=== PATIENT | female | born 1980 ===

== ENCOUNTER 2024-08-24 20:10 | Emergency (ER) | payer OTHER, SELFPAY ==
[2024-08-24 20:14] VITALS: BP 138/84; PULSE 118; RESP 20; TEMP 36.6; O2SAT 98; BMI 38.7
[2024-08-24 21:05] LABS: MANUAL DIFF FLAG NO
[2024-08-24 21:09] LABS: Basophils Absolute Auto 0.1 X10*3/uL (0.0-0.2); Basophils Percent Auto 0.5 % (0-2); Eosinophils Absolute Auto 0.3 X10*3/uL (0.0-0.4); Eosinophils Percent Auto 2.5 % (0-4); Hematocrit 35.4 % (37.0-47.0); Hemoglobin 11.7 g/dl (12.0-16.0); Imm Gran Abs Auto 0.03 X10*3/uL (0.00-0.03); Imm Gran Pct Auto 0.3 % (0.0-0.4); Lymphocytes Absolute Auto 1.2 X10*3/uL (1.2-4.9); Lymphocytes Percent Auto 11.8 % (20-40); Mean Corpuscular HGB Conc 33.1 g/dl (31.0-35.0); Mean Corpuscular Hemoglobin 28.2 pg (27.0-33.0); Mean Corpuscular Volume 85.3 fL (80.0-98.0); Mean Platelet Volume 9.3 fL (9.4-12.3); Monocytes Absolute Auto 0.6 X10*3/uL (0.1-1.2); Monocytes Percent Auto 5.7 % (2-11); Neutrophils Absolute Auto 7.9 x10*3/uL (2.0-8.3); Neutrophils Percent Auto 79.2 % (45-73); Platelet Count 320 X10*3/uL (160-400); Red Blood Count 4.15 X10*6/uL (4.20-5.50)
[2024-08-24 21:18] LABS: IDNOW Serial# 08D9AD1C; Strep A Nucleic Acid Negative (Negative)
[2024-08-24 21:21] LABS: Anion Gap 10 (12-20); Blood Urea Nitrogen 11 mg/dL (9-16); Calcium 8.7 mg/dL (8.4-10.2); Carbon Dioxide 22 mmol/L (22-29); Chloride 108 mmol/L (96-108); Creatinine Clr Calc Pharmacy 90.9; Estimated Glomerular Filt Rate > 60; Glucose Random 120 mg/dL (60-115); Potassium 3.7 mmol/L (3.3-5.1); Sodium 136 mmol/L (135-145)
[2024-08-24 21:45] LABS: Influenza A PCR NEGATIVE (Negative); Influenza B PCR NEGATIVE (Negative); Resp Syncy Virus RNA Qual PCR NEGATIVE (Negative); SARS COV2 PCR INHOUSE POSITIVE (Negative)
--- NOTE | 2024-08-25 04:00 | PC.NURSE ---
Pt in room emc 1 waiting to be seen by ED provider.
[2024-08-25 05:39] VITALS: BP 115/72; PULSE 103; RESP 18; TEMP 37.1; O2SAT 96
--- NOTE | 2024-08-25 07:09 | ED.GENADULT ---
HPI - General Adult General Chief complaint: Upper Respiratory Symptoms Stated complaint: ?Bronchitis Time Seen by Provider: 08/25/24 06:42 Source: patient Mode of arrival: ambulatory Limitations: no limitations History of Present Illness ED Provider: Ginette Griffin PA-C HPI narrative: Patient is a 43 year old assigned female at with no reported medical history presenting to the emergency department today with a month of headache, congestion, and cough. Patient denies any dizziness, lightheadedness, abdominal pain, nausea, vomiting, fever, chills, blurry vision, double vision, loss of vision, chest pain, difficulty breathing, shortness of breath, back pain, night sweats, pain with urination, increased urinary frequency, increased urinary urgency, blood in her urine or stool, syncope or a near syncopal episode, recent trauma or falls, bowel incontinence, bladder incontinence, or any other complaints at this time. Onset (ago): month(s) (1) Relieving factors: none Exacerbating factors: none Associated symptoms: cough Treatments prior to arrival: none Related Data Previous Rx's ?Medication ?Instructions ?Recorded prednisone 20 mg tablet 20 mg PO DAILY 7 days #7 tabs 08/25/24 Allergies Allergy/AdvReac Type Severity Reaction Status Date / Time No Known Allergies Allergy Verified 08/24/24 20:17 Review of Systems Constitutional: Constitutional: Reports no additional constitutional complaints, Denies chills, Denies fever(s) and Denies night sweats Eyes: Eyes: Reports no additional eye complaints, Denies blurry vision, Denies change in vision, Denies diplopia, Denies eye discharge, Denies loss of vision and Denies eye pain ENT: Denies dizziness Cardiovascular: Cardiovascular: Reports no additional cardiovascular complaints, Denies chest pain, Denies lightheadedness, Denies Loss of Consciousness and Denies dyspnea Respiratory: Respiratory: Reports no additional respiratory complaints, Reports cough and Denies dyspnea Gastrointestinal: Gastrointestinal: Reports no additional gastrointestinal complaints, Denies abdominal pain, Denies melena, Denies hematochezia, Denies change in bowel habits and Denies change in stool character Genitourinary: Genitourinary: Denies hematuria, Denies urinary frequency, Denies dysuria, Denies urinary incontinence, Denies urinary hesitancy and Denies urinary urgency Musculoskeletal: Musculoskeletal: Reports no additional musculoskeletal complaints, Denies numbness and Denies tingling Neurologic: Denies dizziness, Denies loss of vision, Denies numbness and Denies tingling Psychiatric: Psychiatric: Reports no additional psychiatric complaints Endocrine: Endocrine: Reports no additional endocrine complaints Hematologic/Lymphatic: Hematologic/Lymphatic: Reports no additional hematologic/lymphatic complaints Allergic/Immunologic: Allergic/Immunologic: Reports no additional allergic/immunologic complaints [facility] Past Medical History Attestation statement: The following information was validated with the patient. Source: old records reviewed and nursing notes reviewed Social History Social History Unable to assess alcohol history related to: Unknown Smoked in Last 30 Days: No Use of substances other than those prescribed or required for medical reasons: No Advance Directives: No Advance Directives Information Provided: No Do you have a plan to hurt others: No Plan Physical Exam ED Vital Signs: Vital Signs - 24 hr 08/24/24 20:14 08/25/24 05:39 08/25/24 07:29 Temperature 97.8 F 98.8 F 98.8 F Pulse Rate 118 H 103 H 103 H Respiratory Rate 20 18 18 Blood Pressure 138/84 115/72 115/72 Pulse Oximetry 98 96 96 Oxygen Delivery Method Room Air Room Air Room Air BMI result Body Mass Index 38.7 Const General: cooperative, no acute distress, alert and awake Nutritional Appearance: well nourished Orientation/consciousness: patient oriented x3 Limitations: no limitations HENMT Head: Yes normal to inspection and Yes atraumatic Ears: hearing grossly normal bilaterally and external ears normal General nose exam: Normal external nose present, no nasal discharge noted and no epistaxis Face and sinus: Yes normal facial exam, No abrasion and No laceration Mouth: Normal oral and palatal mucosa present, no drooling and no muffled voice Eyes General: appearance normal, both eyes and all related structures Periorbital: periorbital findings normal Eyelids: Yes eyelids normal Conjunctivae: conjunctivae normal Pupils: Equal, round and reactive pupils present EOM: EOMs intact bilaterally Neck Neck: Yes normal visual inspection, Yes full ROM and Yes no lymphadenopathy Chest Chest palpation & inspection: normal inspection of the chest Resp Effort & Inspection: normal respiratory effort and able to speak in complete sentences GI Inspection: Yes normal to inspection Neuro General: patient oriented x3 and moves all extremities Cranial nerves: Yes Equal, round and reactive pupils present Cognition (Neuro): normal cognition Extrem General: Yes normal to inspection, Yes full ROM and Yes capillary refill normal Psych Appearance: grossly normal Mental Status: mental status grossly normal Affect: normal affect Attitude: cooperative Thought process: Normal thought process present Thought content: Normal thought content present Insight: Good insight present (Psych) Medical Decision Making Medical Decision Making MDM Narrative: Patient is a 43 year old assigned female at with no reported medical history presenting to the emergency department today with a cough. Patient's physical exam was unremarkable. Patient's blood work was unremarkable. Patient's COVID-19 test was positive. I explained my physical exam findings as well as all test results to the patient. I answered all questions asked by the patient. I stressed the importance of the patient taking her medication as directed (either prescribed or as the over the counter packaging recommends). I stressed the importance of the patient following up with her primary care provider. I stressed the importance of the patient returning to the emergency department immediately if her symptoms were to worsen or if she were to develop any dizziness, shortness of breath, difficulty breathing, chest pain, blurry vision, loss of vision, nausea, vomiting, abdominal pain, fever, chills, back pain, or any other complaints. Patient verbalized agreement and understanding with this treatment plan and discharge. Differential Diagnosis Differential Diagnoses: The differential diagnosis associated with the presentation includes Bronchitis COVID-19 Influenza RSV URI Admission/Observation Consideration of admission/observation: Escalation of care including admission/observation considered Patient would have been admitted to the hospital had her work up had any findings where hospital admission was appropriate and her clinical presentation warranted hospital admission. Lab Data [facility] Lab Attestation statement: I reviewed the patient's lab results. My interpretation of these results are in the MDM Rationale portion of this note. 08/24/24 20:59 08/24/24 20:59 Labs: Lab Results 08/24/24 Range/Units 20:59 WBC 10.0 (4.8-10.8) X10*3/uL RBC 4.15 L (4.20-5.50) X10*6/uL Hgb 11.7 L (12.0-16.0) g/dl Hct 35.4 L (37.0-47.0) % MCV 85.3 (80.0-98.0) fL MCH 28.2 (27.0-33.0) pg MCHC 33.1 (31.0-35.0) g/dl RDW 13.0 (11.0-16.0) % Plt Count 320 (160-400) X10*3/uL MPV 9.3 L (9.4-12.3) fL Immature Gran % (Auto) 0.3 (0.0-0.4) % Neut % (Auto) 79.2 H (45-73) % Lymph % (Auto) 11.8 L (20-40) % [place] % (Auto) 5.7 (2-11) % Eos % (Auto) 2.5 (0-4) % Baso % (Auto) 0.5 (0-2) % Lymph # (Auto) 1.2 (1.2-4.9) X10*3/uL [place] # (Auto) 0.6 (0.1-1.2) X10*3/uL Eos # (Auto) 0.3 (0.0-0.4) X10*3/uL Baso # (Auto) 0.1 (0.0-0.2) X10*3/uL Abs Immat Gran (auto) 0.03 (0.00-0.03) X10*3/uL Absolute Neuts (auto) 7.9 (2.0-8.3) x10*3/uL Absolute Nucleated RBC 0.000 (0.0-0.012) X10*3/uL Nucleated RBC % (auto) 0.0 (0.0-0.2) /100WBC Sodium 136 (135-145) mmol/L Potassium 3.7 (3.3-5.1) mmol/L Chloride 108 (96-108) mmol/L Carbon Dioxide 22 (22-29) mmol/L Anion Gap 10 L (12-20) BUN 11 (9-16) mg/dL Creatinine 0.78 (0.5-1.4) mg/dL Estim Creat Clear Calc 90.9 Estimated GFR > 60 Random Glucose 120 H (60-115) mg/dL Calcium 8.7 (8.4-10.2) mg/dL Influenza Type A (PCR) NEGATIVE (Negative) Influenza Type B (PCR) NEGATIVE (Negative) RSV RNA Qual (PCR) NEGATIVE (Negative) SARS-CoV-2 RNA (RT-PCR) POSITIVE A (Negative) S. pyogenes GrpA MANISHA Negative (Negative) Discharge Plan Discharge Clinical Impression: COVID-19 Patient Disposition: Home, Self-Care Instructions: COVID-19 (Coronavirus Disease 2019) (ED) Additional Instructions: Follow up with your primary care provider. Return to the emergency department immediately if your symptoms worsen or if you develop any dizziness, shortness of breath, difficulty breathing, chest pain, blurry vision, loss of vision, nausea, vomiting, abdominal pain, fever, chills, back pain, or any other complaints. Prescriptions: New prednisone 20 mg tablet 20 mg PO DAILY 7 Days Qty: 7 0RF Referrals: [facility] Family Medicine [Provider Group] (Call to establish and follow up with a primary care provider. If you already have a primary care provider, please follow up with them. ) [facility] Primary Care, C[place]lle [Provider Group] (Call to establish and follow up with a primary care provider. If you already have a primary care provider, please follow up with them. ) [facility] Primary Care,Evaristo [Provider Group] (Call to establish and follow up with a primary care provider. If you already have a primary care provider, please follow up with them. ) Stand Alone Forms: Work/School Release Interventions: ED Discharge Assessment Last Done: 08/25/24 07:29 Discharge Date/Time: 08/25/24 07:29 Print Language: Persian
[2024-08-25 07:29] VITALS: BP 115/72; PULSE 103; RESP 18; TEMP 37.1; O2SAT 96
== END 2024-08-25 07:29 | disposition home or self-care (01) ==
PROVIDERS: Emergency Provider Student in an Organized Health Care Education/Training Program
DX: U07.1 COVID-19 (principal); R05.9 Cough, unspecified; R51.9 Headache, unspecified; R09.89 Other specified symptoms and signs involving the circulatory and respiratory systems
CPT/HCPCS: 0241U; 36415; 80048; 85025; 87651; 99283; 99284

== ENCOUNTER 2024-11-30 11:07 | Outpatient (REF) | payer OTHER, SELFPAY ==
--- OUTSIDE RECORDS SUMMARY | 2024-11-30 12:19 | XMS_ITS | Encounter Summary ---
Author Organization [employer] Address [address] [place] [address] 7 [place] [address] Care Team Providers Care Golf Player Assistant Name Role Phone Oziel Sandra MD Primary Care Prov ider Encounter Details Date Type Department Care Team ([facility] st Contact Info) Description 11/30/2024 Telephone [facility] MED & PEDS [address] [place], [place] [phone] Oziel Sandra MD [address] [place] [address] Social History Tobacco Use Types Packs/Day Years Used Date Smoking Tobacco: Never Smokeless Tobacco: Never Alcohol Use Standard Drinks/Week Comments Yes 0 (1 standard drink = 0.6 oz pur e alcohol) social hard liquor Depression Answer Date Recorded Patient Health Questionnaire-9 Score 4 11/23/2024 Patient Health Questionnaire-9 Score 4 11/23/2024 Last PHQ-9: Questionnaire Data Not on file 0 11/23/2024 Housing Stability Answer Date Recorded What is your housing situation today? I have ben burdick 11/23/[address] you li ve. Do you have problems with any of the following? None of the above 11/23/2024 Food Insecurity Answer Date Recorded Within the past 12 months, y ou worried that your food would run out before you got money to buy more: Never True 11/23/2024 Within the past 12 months,th e food you bought just didn't last and you didn't have enough money to get more: Never True 08/2025 Transportation Answer Date Recorded In the past 12 months, has l ack of transportation kept you from medical appts, meetings, work or from getting things needed for daily living? No 11/23/2024 Utilities Answer Date Recorded In the past 12 months, has t he electric, gas, oil or water company threatened to shut off services in your home? No 11/23/2024 Depression Answer Date Recorded Patient Health Questionnaire-2 Score 2 11/23/2024 Internet Access Answer Date Recorded Internet Access Q1 Yes 11/23/2024 Internet Access Q2 Not on file 11/23/2024 Comments Unknown Sex and Gender Information Value Date Recorded Sex Assigned at Female 10/11/2024 8:53 AM EST Legal Sex Female 8:52 AM EST Gender Identity Female 11/23/2024 1:03 PM EST Sexual Orientation Straight 11/23/2024 1: 03 PM EST documented as of this encounter Miscellaneous Notes * Telephone Encounter - Kathleen Hu MA - 11/30/2024 9:42 AM EST Called pt to schedule pap appt with Griselda Quinonez CNM. Pt. Prefers female provider for pap. Pt didn't answer, lvm to call office back. documented in this encounter Plan of Treatment Upcoming Encounters Date Type Department Care Team (Late st Contact Info) Description 01/04/2025 9:30 AM EDT Telemedicine [facility] MED & PEDS [address] [place] [address] Oziel Sandra MD [address] [place] [address] 02/10/2025 9:00 AM EDT Procedure Visit [facility] MED & PEDS [address] [place] [address] Griselda Quinonez CNM [address] [place] [address] documented as of this encounter Visit Diagnoses Not on filedocumented in this encounter Additional Health Concerns Assessment Noted Time PHQ-9 Depression Total Score: 4 11/23/19 25 1:28 PM EST documented as of this encounter Care Teams Golf Player Assistant Relationship Specialty Start Date End Date Oziel Sandra MD [address] [place] [id number] PCP - General Internal Medicine 11/23/24 documented as of this encounter
--- OUTSIDE RECORDS SUMMARY | 2024-11-30 12:19 | XMS_ITS | Encounter Summary ---
Author Organization [employer] Address [address] [facility] [address] [place] [address] Care Team Providers Care Work Study Student Name Role Phone Oziel Sandra MD Primary Care Prov ider Encounter Details Date Type Department Care Team (Latest Contact Info) Description 11/30/2024 Travel Social History Tobacco Use Types Packs/Day Years [...] PM EST documented as of this encounter Plan of Treatment Upcoming Encounters Date Type Department Care Team (Late st Contact Info) Description 01/04/2025 9:30 AM EDT Telemedicine [facility] MED & PEDS [address] [place] [address] Oziel Sandra MD [address] [place] [address] 02/10/2025 9:00 AM EDT Procedure Visit [facility] MED & PEDS [address] [place] [address] Griselda Quinonez, CNM [address] [place] [address] documented as of this encounter Visit Diagnoses Not on filedocumented in this encounter Additional Health Concerns Assessment Noted Time PHQ-9 Depression Total Score: 4 11/23/19 1:28 PM EST documented as of this encounter Care Teams Work Study Student Relationship Specialty Start Date End Date Oziel Sandra MD [address] [place] [address] PCP - General Internal Medicine 11/23/24 documented as of this encounter
--- OUTSIDE RECORDS SUMMARY | 2024-11-30 12:19 | XMS_ITS | Clinical Summary ---
Author Organization [employer] Address [address] [place] [address] [address] [place] [address] Care Team Providers Care Ream Cutter Name Role Phone Oziel Sandra MD Primary Care Prov ider Allergies No known active allergies Medications Omeprazole 20 MG tablet delayed-release Take 1 tablet (20 mg) by mouth Once per day. 90 tablet 3 5 11/23/19 26 Active fluticasone (Flonase) 50 MCG/ACT nasal spray Administer 1-2 sprays into each nostril Once per day. Shake gently. Before first use, prime pump. After use, clean tip and replace cap. 16 g 2 5 11/23/19 26 Active cetirizine (ZyrTEC) 10 MG tablet Take 1 tablet (10 mg) by mouth Once per day. 30 tablet 11 5 11/23/19 26 Active Active Problems Problem Noted Date Diagnosed Date Encounter for medical examination to establish c are 11/23/2024 Assessment & Plan (11/23/2024 1:42 PM EST): Last pcp visit over 3 years ER: bronchitis jul 2024 Hospitalization:- Pmhx: - Pshx: - All: - Meds: - [id number] LMP 11/23/24 Menarche 8yrs Sexually active with 1 male partner, Screening for colon cancer 11/23/2024 Assessment & Plan (11/23/2024 1:46 PM EST): Will refer for screening colon cancer Encounter for screening mamm ogram for malignant neoplasm of breast 11/23/2024 Assessment & Plan (11/23/2024 1:47 PM EST): Screening mammogram Acute pain of left knee 11/23/2024 Assessment & Plan (11/23/2024 2:03 PM EST): Will order left knee xray, told to rest, apply cold packs, avoid heavy lifting, will refer to PT Chronic rhinitis 11/23/2024 Assessment & Plan (11/23/2024 2:05 PM EST): Will start on Flonase and cetirizine, call back if not improving, Gastroesophageal reflux disease without esophagi tis 11/23/2024 Assessment & Plan (11/23/2024 2:09 PM EST): Will start on omeprazole, lifestyle modifications discussed, follow up as needed Encounters Date Type Department Care Team Description 11/30/2024 Travel 11/30/2024 Telephone [facility] MED & PEDS [address] [place] [address] Oziel Sandra MD 11/23/2024 1:45 PM EST Office Visit [facility] [address] [place] [address] Oziel Sandra MD Encounter for medical examination to establish care (Primary Dx); Obesity (BMI 30-39.9); Screening for colon cancer; Encounter for screening mammogram for malignant neoplasm of breast; Acute pain of left knee; Screening-pulmonary TB; Chronic rhinitis; Encounter for immunization; Gastroesophageal reflux disease without esophagitis 11/23/2024 Travel 11/16/2024 Patient Outreach [facility] [address] [place] [address] Oziel Sandra MD Pre-visit Planning ([facility] unable to reach [facility]) 10/11/2024 Telephone [facility] [address] [place] [address] He Ambriz MD new patient visit from Last 3 Months Immunizations Name Administration Dates Next Due Tdap 11/23/2024 Family History Medical History Relation Name Comments Colon cancer Brother Colon cancer Father Diabetes Father Osteoarthritis Father No Known Problems Mother Relation Name Status Comments Brother Father Mother Social History Tobacco Use Types Packs/Day Years Used Date Smoking Tobacco: Never Smokeless Tobacco: Never Tobacco Cessation:Counseling Given: Not Answered Alcohol Use Standard Drinks/Week Comments Yes 0 [...] Orientation Straight 11/23/2024 1: 03 PM EST Last Filed Vital Signs Vital Sign Reading Time Taken Comments Blood Pressure 132/88 11/23/2024 1:25 PM EST Pulse 88 11/23/2024 1:25 PM EST Temperature 36.7 ??C (98.1 ??F) 11/23/2024 1:25 PM ES T Respiratory Rate 20 11/23/2024 1:25 PM EST Oxygen Saturation - - Inhaled Oxygen Concentration - - Weight 88.5 kg (195 lb 3.2 oz) 11/23/2024 1:25 P M EST Height 152.4 cm (5') 11/23/2024 1:25 PM EST Body Mass Index 38.12 11/23/2024 1:25 PM EST Plan of Treatment Upcoming Encounters Date Type Department Care Team (Late st Contact Info) Description 01/04/2025 9:30 AM EDT Telemedicine [facility] MED [facility] PED[facility] [address] [place] [address] Oziel Sandra MD [address] [place] [address] 02/10/2025 9:00 AM EDT Procedure Visit [facility] [address] [place] [address] Griselda Quinonez, KARLEE [address] [place] [address] Health Maintenance Due Date Last Done Comments CT Colonography 1978 Colonoscopy 1978 Colorectal Cancer Screening 1978 FIT DNA/Cologuard 1978 FIT 1978 FOBT 1978 HIV Screening 1978 Lipid Panel 1978 Sigmoidoscopy 1978 Family Planning (PISQ) 1993 Hepatitis C Screening 1996 Pap Smear 1999 Cervical Cancer Screening 2008 HPV/Cotest 2008 Hepatitis B Vaccines (2 of 3 - 19+ 3-dose series) 09/15/2017 08/18/2017 Mammogram 2018 COVID-19 Vaccine (2023-2 5 season) 2024 02/26/2021, 02/05/2021 Influenza Vaccine (#1) 2024 06/22/2019 Alcohol/Substance Use Screening 11/23/2025 11/23/2024 Depression Screening 11/23/2025 11/23/2024, 11/23/2024 SDOH Screening 11/23/2025 11/23/2024 Tobacco Screening 11/23/2025 11/23/2024 Zoster Vaccines (1 of 2) 2028 DTaP/Tdap/Td Vaccines (3 - T d or Tdap) 11/23/2034 11/23/2024, 10/17/2009 RSV Patients and Patients Aged 60 years or older (1 - 1-dose 75+ series) 2053 HIB Vaccines Aged Out No longer eligi ble based on patient's age to complete this topic HPV Vaccines Aged Out No longer eligi ble based on patient's age to complete this topic Hepatitis A Vaccines Aged Out No long er eligible based on patient's age to complete this topic IPV Vaccines Aged Out No longer eligi ble based on patient's age to complete this topic Meningococcal Vaccine Aged Out No barrett leila eligible based on patient's age to complete this topic Pneumococcal Vaccine: Pediatrics (0 to 5 Years) and At-Risk Patients (6 to 49) Years) Aged Out No longer eligible b ased on patient's age to complete this topic RSV under 20 months Aged Out No longe r eligible based on patient's age to complete this topic Rotavirus Vaccines Aged Out No longer eligible based on patient's age to complete this topic Insurance [employer] Care Teams Ream Cutter Relationship Specialty Start Date End Date Oziel Sandra MD [address] [place] [id number] PCP - General Internal Medicine 11/23/24
--- OUTSIDE RECORDS SUMMARY | 2024-11-30 12:19 | XMS_ITS | Clinical Summary ---
Author Organization [facility] Address [address] [place] [address] Care Team Providers Care Heat And Vent Aircraft Mechanic Name Role Phone Pcp, Porsche MD Primary Care Provider Unavailabl e Allergies No known active allergies Medications No known medications Active Problems No known active problems Social History Tobacco Use Types Packs/Day Years Used Date Smoking Tobacco: Never Assessed Comments No Sex and Gender Information Value Date Recorded Sex Assigned at Not on file Legal Sex Female 1:45 PM EDT Gender Identity Not on file Sexual Orientation Not on file Last Filed Vital Signs Vital Sign Reading Time Taken Comments Blood Pressure 124/60 04/13/2024 3:58 PM EDT Pulse 76 04/13/2024 3:58 PM EDT Temperature 36.8 ??C (98.2 ??F) 04/13/2024 3:58 PM ED T Respiratory Rate 18 04/13/2024 3:58 PM EDT Oxygen Saturation 96% 04/13/2024 3:58 PM EDT Inhaled Oxygen Concentration - - Weight 89.8 kg (198 lb) 04/13/2024 2:07 PM EDT Height 152.4 cm (5') 04/13/2024 2:07 PM EDT Body Mass Index 38.67 04/13/2024 2:07 PM EDT Plan of Treatment Health Maintenance Due Date Last Done Comments Breast Cancer Screening 1978 CT Colonography 1978 Colonoscopy 1978 Colorectal Cancer Screening 1978 FIT-DNA (Cologuard) 1978 FIT 1978 FOBT 1978 Flex Sigmoidoscopy - 5y 1978 HIV Screening 1978 Hepatitis C Screening 1996 Hepatitis B Vaccines (1 of 3 - 19+ 3-dose series) 1997 Pap Smear 1999 Cervical Cancer Screening 2008 HPV/Cotest 2008 DTaP,Tdap,and Td Vaccines (2 - Td or Tdap) 10/17/2019 10/17/2009 COVID-19 Vaccine (1 - 2023-2 5 season) 2024 Influenza Vaccine (#1) 2024 06/22/2019 Zoster Vaccines (1 of 2) 2028 MMR Vaccines Aged Out 06/24/2019 No longer eligi ble based on patient's age to complete this topic HPV Vaccines Aged Out No longer eligi ble based on patient's age to complete this topic Hepatitis A Vaccines Aged Out No long er eligible based on patient's age to complete this topic Meningococcal Vaccine Aged Out No barrett leila eligible based on patient's age to complete this topic Pneumococcal Vaccine: Pediat rics (0 to 5 Years) and At-Risk Patients (6 to 64 Years) Aged Out No longer eligi ble based on patient's age to complete this topic Insurance Krysta fitzpatrick [address] [id number] [facility] Care Teams Heat And Vent Aircraft Mechanic Relationship Specialty Start Date End Date Porsche Matta MD [address] [place] [address] PCP - General Internal Medicine 04/13/24
--- OUTSIDE RECORDS SUMMARY | 2024-11-30 12:19 | XMS_ITS ---
Author Name [facility] Organization Unknown Results Test Name/Text Value Interpretation Date Range Source INFLUENZA B PCR (CEPHEID) Not Detected Normal [facility] INFLUENZA A PCR (CEPHEID) Not Detected Normal [facility] RSV PCR (CEPHEID) Not Detected Normal [facility] SARS-COV-2 PCR (CEPHEID) Negative Normal [facility] CREATININE 0.8mg/dL Normal 0.6 - 1.2 [facility] POTASSIUM 4.8mmol/L Normal 3.6 - 5.1 [facility] BICARBONATE 23mmol/L Normal 23 - 32 [facility] GLOMERULAR FILTRATION RATE ML/MIN/1.73 SQ M.PREDICTED 93mL/min/1.73m*2 Normal 60 - [facility] SODIUM 139mmol/L Normal 137 - 144 [facility] CHLORIDE 109mmol/L Normal 100 - 111 [facility] CALCIUM, TOTAL 8.9mg/dL Normal 8.4 - 10.2 [facility] UREA NITROGEN 10mg/dL Normal 8 - 24 [facility] ANION GAP 7mmol/L Normal 3 - 11 [facility] GLUCOSE 92mg/dL Normal 70 - 200 [facility] RBC DISTRIBUTION WIDTH 12.8% Normal 11.6 - 14.8 [facility] AUTO NRBC % 0% Normal 0 - [address] [facility] [address] 5.910*3/uL Normal 1.4 - 6.[address] [facility] [address] 0.510*3/uL Normal [id number] 0.2 - 0.8 [facility] MCHC 32.9g/dL Normal 32 - 36 [facility] MCH 28.3pg Normal [id number] 26 - 34 [facility] IMMATURE GRANULOCYTE % 0.2% Normal 0 - 0.6 [facility] EOSINOPHIL % 2.1% Normal 0 - [address] [facility] [address] 010*3/uL Normal 0 - 0. 2 [facility] MCV 86.2fL Normal 80 - 100 [facility] PLATELET COUNT 45134*3/uL Normal 150 - 440 [facility] BASOPHILS % 0.5% Normal 0 - [address] [facility] [address] 1.910*3/uL Normal 0.7 - 4.[address] [facility] [address] 0.210*3/uL Normal 0 - 0.3 [facility] HEMATOCRIT 36.2% Normal 35 - 47 [facility] WHITE CELL COUNT 8.510*3/uL Normal 3.6 - 11 [facility] RED CELL COUNT 4.210*6/???L Normal 3.8 - 5.2 [facility] MONOCYTE % 6% Normal 4 - 12 [facility] NEUTROPHIL % 69% Normal 40 - 70 [facility] HEMOGLOBIN 11.9g/dL Below low normal 12 - 16 [facility] LYMPHOCYTE % 22.2% Normal 20 - 50 [facility]
--- OUTSIDE RECORDS SUMMARY | 2024-11-30 12:19 | XMS_ITS | Encounter Summary ---
Author Organization [employer] Address [address] [place] [address] [address] [place] [address] Care Team Providers Care Bond Writer Name Role Phone Oziel Sandra MD Primary Care Prov ider Reason for Referral * Consultation (Routine) - Closed Specialty Diagnoses / Procedures Referred By Yuliya acno Referred To Contact Physical Therapy Diagnoses Acute pain of left knee Oziel Sandra MD [address] [place] [address] Phone: tel: fax: Physical Therapy, AT [address] Phone: tel: fax: Referral ID Status Reason Start Date Expiration Date V isits Requested Visits Authorized [id number] Closed Specialty Services Required 11/23/2024 11/23/2025 1 1 * Imaging (Routine) - Closed Specialty Diagnoses / Procedures Referred By Yuliya cano Referred To Contact Radiology Diagnoses Encounter for screening mammogram for malignant neoplasm of breast Procedures BI Mammogram Screening Tomosynthesis Bilateral Oziel Sandra MD [address] [place] [address] Phone: tel: fax: [address] Phone: tel: fax: Referral ID Status Reason Start Date Expiration Date Visits Re quested Visits Authorized [id number] Closed 11/23/2024 11/23/2025 1 1 * Consultation (Routine) - Authorized Specialty Diagnoses / Procedures Referred By Yuliya cano Referred To Contact Gastroenterology Diagnoses Screening for colon cancer Oziel Sandra MD [address] [place] [address] Phone: tel: fax: Cyndie Reid MD [address] [place] [address] [place] [address] Phone: tel: fax: Referral ID Status Reason Start Date Expiration Date Visits Requested Visits Authorized [id number] Authorized Specialty Services Required 11/23/2024 11/23/2025 1 1 Encounter Details Date Type Department Care Team ([facility] st Contact Info) Description 11/23/2024 1:45 PM EST Office Visit [facility] [address] [place] [address] Oziel Sandra MD [address] [place] [address] Encounter for medical examination to establish care (Primary Dx); Obesity (BMI 30-39.9); Screening for colon cancer; Encounter for screening mammogram for malignant neoplasm of breast; Acute pain of left knee; Screening-pulmonary TB; Chronic rhinitis; Encounter for immunization; Gastroesophageal reflux disease without esophagitis Social History Tobacco Use Types Packs/Day Years [...] PM EST documented as of this encounter Last Filed Vital Signs Vital Sign Reading [...] Mass Index 38.12 11/23/2024 1:25 PM EST documented in this encounter Progress Notes * Oziel Wing MD - 11/23/2024 1:45 PM EST Subjective Patient ID: Araceli Wright is a 44 y.o. female who presents for No chief complaint on file.. HPI Patient was seen on office to establish medical care Review of Systems Constitutional: Negative for chills, fatigue and fever. Respiratory: Negative for cough and shortness of breath. Cardiovascular: Negative for chest pain and palpitations. Genitourinary: Negative for dysuria. Musculoskeletal: Negative for arthralgias and joint swelling. Objective Physical Exam Constitutional: Appearance: Normal appearance. HENT: Right Ear: Tympanic membrane, ear canal and external ear normal. There is no impacted cerumen. Left Ear: Tympanic membrane, ear canal and external ear normal. There is no impacted cerumen. Cardiovascular: Rate and Rhythm: Normal rate and regular rhythm. Heart sounds: No murmur heard. Pulmonary: Effort: Pulmonary effort is normal. No respiratory distress. Breath sounds: No stridor. No wheezing or rhonchi. Abdominal: General: Abdomen is flat. There is no distension. Palpations: There is no mass. Tenderness: There is no abdominal tenderness. Hernia: No hernia is present. Musculoskeletal: General: Normal range of motion. Cervical back: Normal range of motion. No rigidity or tenderness. Lymphadenopathy: Cervical: No cervical adenopathy. Neurological: General: No focal deficit present. Mental Status: She is alert and oriented to person, place, and time. Psychiatric: Mood and Affect: Mood normal. Behavior: Behavior normal. Assessment/Plan Problem List Items Addressed This Visit Encounter for medical examination to establish care - Primary Last pcp visit over 3 years ER: bronchitis jul 2024 Hospitalization:- Pmhx: - Pshx: - All: - Meds: - G5A4P1 LMP 11/23/24 Menarche 8yrs Sexually active with 1 male partner, Screening for colon cancer Will refer for screening colon cancer Relevant Orders Referral to Gastroenterology Encounter for screening mammogram for malignant neoplasm of breast Screening mammogram Relevant Orders BI Mammogram Screening Tomosynthesis Bilateral Acute pain of left knee Will order left knee xray, told to rest, apply cold packs, avoid heavy lifting, will refer to PT Relevant Orders XR Knee 4+ Views Left Referral to Physical Therapy Chronic rhinitis Will start on Flonase and cetirizine, call back if not improving, Gastroesophageal reflux disease without esophagitis Will start on omeprazole, lifestyle modifications discussed, follow up as needed Other Visit Diagnoses Obesity (BMI 30-39.9) Relevant Orders CBC auto differential Comprehensive Metabolic Panel Lipid Panel, Standard TSH W/Reflex to FT4 Hemoglobin A1c HIV-1/2 Antigen and Antibodies, Fourth Generation, with Reflexes Hepatitis C Antibody with Reflex to HCV, RNA, Quantitative, Real-Time PCR Screening-pulmonary TB Relevant Orders T-SPOT??.TB Encounter for immunization Relevant Orders TDAP VACCINE 7 yrs + (Completed) documented in this encounter Miscellaneous Notes * Assessment & Plan Note - Oziel Wing MD - 11/23/2024 2:09 PM ESTAssociated Problem(s): Gastroesophageal reflux disease without esophagitis Will start on omeprazole, lifestyle modifications discussed, follow up as needed * Assessment & Plan Note - Oziel Wing MD - 11/23/2024 2:05 PM ESTAssociated Problem(s): Chronic rhinitis Will start on Flonase and cetirizine, call back if not improving, * Assessment & Plan Note - Oziel Wing MD - 11/23/2024 2:03 PM ESTAssociated Problem(s): Acute pain of left knee Will order left knee xray, told to rest, apply cold packs, avoid heavy lifting, will refer to PT * Assessment & Plan Note - Oziel Wing MD - 11/23/2024 1:47 PM ESTAssociated Problem(s): Encounter for screening mammogram for malignant neoplasm of breast Screening mammogram * Assessment & Plan Note - Oziel Wing MD - 11/23/2024 1:46 PM ESTAssociated Problem(s): Screening for colon cancer Will refer for screening colon cancer * Assessment & Plan Note - Oziel Wing MD - 11/23/2024 1:42 PM ESTAssociated Problem(s): Encounter for medical examination to establish care Last pcp visit over 3 years ER: bronchitis jul 2024 Hospitalization:- Pmhx: - Pshx: - All: - Meds: - G5A4P1 LMP 11/23/24 Menarche 8yrs Sexually active with 1 male partner, documented in this encounter Plan of Treatment Upcoming Encounters Date Type Department Care Team (Late st Contact Info) Description 01/04/2025 9:30 AM EDT Telemedicine [facility] [address] [place] [address] Oziel Sandra MD [address] [place] [address] 02/10/2025 9:00 AM EDT Procedure Visit [facility] [address] [place] [address] Griselda Quinonez, CN [address] [place] [address] Scheduled Orders Name Type Priority Associated Diagnoses Orde r Schedule CBC auto differential Lab Routine Obesity (BMI 30-39.9) Expected: 11/23/2024 (Approximate), Expires: 11/23/2025 Comprehensive Metabolic Panel Lab Routine Obesity (BMI 30-39.9) Expected: 11/23/2024 (Approximate), Expires: 11/23/2025 Lipid Panel, Standard Lab Routine Obesity (BMI 30-39.9) Expected: 11/23/2024 (Approximate), Expires: 11/23/2025 TSH W/Reflex to FT4 Lab Routine Obesity (BMI 30-39.9) Expected: 11/23/2024 (Approximate), Expires: 11/23/2025 Hemoglobin A1c Lab Routine Obesity (BMI 30-39.9) Expected: 11/23/2024 (Approximate), Expires: 11/23/2025 HIV-1/2 Antigen and Antibodies, Fourth Generation, with Reflexes Lab Routine Obesity (BMI 30-39.9) Expected: 11/23/2024 (Approximate), Expires: 11/23/2025 Hepatitis C Antibody with Reflex to HCV, RNA, Quantitative, Real-Time PCR Lab Routine Obesity (BMI 30-39.9) Expected: 11/23/2024, Expires: 11/23/2025 BI Mammogram Screening Tomosynthesis Bilateral Imaging Routine Encounter for screening mammogram for malignant neoplasm of breast Expected: 11/23/2024, Expires: 01/21/2026 XR Knee 4+ Views Left Imaging Routine Acute pain of left knee Expected: 11/23/2024, Expires: 11/23/2025 T-SPOT??.TB Lab Routine Screening-pulmonary TB Expected: 11/23/2024 (Approximate), Expires: 11/23/2025 Scheduled Referrals Name Type Priority Associated Diagnoses Order Schedule Referral to Gastroenterology Outpatient Referral Routine Screening for colon cancer Expected: 11/23/2024 (Approximate), Expires: 11/23/2025 Referral to Physical Therapy Outpatient Referral Routine Acute pain of left knee Expected: 11/23/2024 (Approximate), Expires: 11/23/2025 documented as of this encounter Visit Diagnoses Diagnosis Encounter for medical examination to establish care- Primary Obesity (BMI 30-39.9) Screening for colon cancer Special screening for malignant neoplasms, colon Encounter for screening mammogram for malignant neoplasm of breast Acute pain of left knee Screening-pulmonary TB Screening examination for pulmonary tuberculosis Chronic rhinitis Encounter for immunization Gastroesophageal reflux disease without esophagitis Esophageal reflux documented in this encounter Additional Health Concerns Assessment Noted Time PHQ-9 Depression Total Score: 4 11/23/19 25 1:28 PM EST documented as of this encounter Care Teams Bond Writer Relationship Specialty Start Date End Date Oziel Sandra MD [address] [place] [address] PCP - General Internal Medicine 11/23/24 documented as of this encounter
--- OUTSIDE RECORDS SUMMARY | 2024-11-30 12:19 | XMS_ITS | Clinical Summary ---
Author Organization [facility] Address [address] [place] [address] Care Team Providers Care Director Acute Name Role Phone Dora Westbrook MD Primary Care Provider [phone] Surgical History Surgery Date Site/Laterality Comments OTHER SURGICAL HISTORY PROCEDURE: DENIES PREVIOUS SURGERY Medical History Medical History Date Comments Human papillomavirus in cond itions classified elsewhere and of unspecified site DX:Human papillomavirus in c onditions classified elsewhere and of unspecified site; COMMENT: Pap normal 08/20 with + HPV recheck normal 2008 Shingles outbreak DX:Shingles ou tbreak Herpes 2015 DX:Herpes; COMME NT: Type 2 positive Family History Medical History Relation Name Comments Hypertension Brother CTS Colon cancer Father >50 Hypertension Father CTS Breast cancer Father's side cousin, dx ag e 36 Lung cancer Maternal Grandfather smoker Relation Name Status Comments Brother Father Father's side Maternal Grandfather Paternal Grandmother Social History Tobacco Use Types Packs/Day Years Used Date Smoking Tobacco: Never Smokeless Tobacco: Never Alcohol Use Standard Drinks/Week Comments Yes 0 (1 standard drink = 0.6 oz pur e alcohol) Comments Unknown Sex and Gender Information Value Date Recorded Sex Assigned at Not on file Legal Sex Female 12:21 AM EST Gender Identity Not on file Sexual Orientation Not on file Obstetrics History Plan of Treatment Health Maintenance Due Date Last Done Comments Breast Cancer Screening 1978 Hepatitis B Vaccines (1 of 3 - 19+ 3-dose series) 1997 Cervical Cancer Screening: P ap Smear 1999 DTaP,Tdap,and Td Vaccines (2 - Td or Tdap) 10/17/2019 10/17/2009 Colorectal Cancer Screening: Colonoscopy 09/15/2022 Depression Screening 09/15/2022 HIV Screening 09/15/2022 Hepatitis C Screening 09/15/2022 Social Influencers of Health Screening 09/15/2022 COVID-19 Vaccine (1 - 2023-2 5 season) 2024 Influenza Vaccine (#1) 2024 06/22/2019 MMR Vaccines Aged Out 06/24/2019 No longer eligi ble based on patient's age to complete this topic HIB Vaccines Aged Out No longer eligi [...] patient's age to complete this topic Meningococcal ACWY Vaccine Aged Out N o longer eligible based on patient's age to complete this topic Meningococcal B Vacine Aged Out No lo nger eligible based on patient's age to complete this topic Pneumococcal Vaccine: Pediat rics (0 to 5 Years) and At-Risk Patients (6 to 64 Years) Aged Out No longer eligi ble based on patient's age to complete this topic RSV Immunization Patients Un giulia 20 months Aged Out No longer eligible b ased on patient's age to complete this topic Varicella Vaccines Aged Out No longer eligible based on patient's age to complete this topic Care Teams Director Acute Relationship Specialty Start Date End Date Dora Westbrook MD PCP - General Internal Medicine 12/05/17
--- OUTSIDE RECORDS SUMMARY | 2024-11-30 12:19 | XMS_ITS | Encounter Summary ---
Author Organization [employer] Address [address] [facility] [address] [place] [address] Care Team Providers Care Hat Band Attacher Name Role Phone Oziel Sandra MD Primary Care Prov ider Encounter Details Date Type Department Care Team (Latest Contact Info) Description 11/23/2024 Travel Social History Tobacco Use Types Packs/Day [...] Info) Description 01/04/2025 9:30 AM EDT Telemedicine [facility] MED & PEDS [address] [place] [address] Oziel Sandra MD [address] [place] [address] 02/10/2025 9:00 AM EDT Procedure Visit [facility] [address] [place] [address] Griselda Quinonez, CNM [address] [place] [address] documented as of this encounter Visit Diagnoses Not on filedocumented in this encounter Additional Health Concerns Assessment Noted Time PHQ-9 Depression Total Score: 4 11/23/19 1:28 PM EST documented as of this encounter Care Teams Hat Band Attacher Relationship Specialty Start Date End Date Oziel Sandra MD [address] [place] [address] PCP - General Internal Medicine 11/23/24 documented as of this encounter
--- OUTSIDE RECORDS SUMMARY | 2024-11-30 12:19 | XMS_ITS | Encounter Summary ---
Author Organization [employer] Address [address] [place] [address] [place] [address] Care Team Providers Care Machine Shop Instructor Name Role Phone Unavailable Primary Care Provider Unavailabl e Reason for Visit * Reason Comments Pre-visit Planning SDOH unable to reach LVM Encounter Details Date Type Department Care Team (Late st Contact Info) Description 11/16/2024 Patient Outreach [facility] [address] [place] [address] Oziel Sandra MD [address] [place] [address] Pre-visit Planning (SDOH unable to reach LVM) Social History Tobacco Use Types Packs/Day Years Used Date Smoking Tobacco: Never Assessed Comments Unknown Sex and Gender Information Value Date Recorded Sex Assigned at Female 10/11/2024 8:53 AM EST Legal Sex Female 8:52 AM EST Gender Identity Female 11/23/2024 1:03 PM EST Sexual Orientation Straight 11/23/2024 1: 03 PM EST documented as of this encounter Progress Notes * Nivia Jennings - 11/16/2024 3:51 PM EST CC Nivia Bhatti placed outbound call to patient to complete pre-visit planning. No answer at this time. Patient name and were not confirmed. CC left voicemail requesting return call. Direct contactinformation provided. documented in this encounter Plan of Treatment Upcoming Encounters Date Type Department Care Team (Late st Contact Info) Description 01/04/2025 9:30 AM EDT Telemedicine [facility] [address] [place] [address] Oziel Sandra MD [address] [place] [address] 02/10/2025 9:00 AM EDT Procedure Visit [facility] [address] [place] [address] Griselda Quinonez, PERRY [address] [place] [address] documented as of this encounter Visit Diagnoses Not on filedocumented in this encounter
[2024-11-30 14:16] LABS: MANUAL DIFF FLAG NO
[2024-11-30 14:24] LABS: Basophils Percent Auto 0.4 % (0-2); Eosinophils Absolute Auto 0.1 X10*3/uL (0.0-0.4); Eosinophils Percent Auto 1.9 % (0-4); Hematocrit 36.2 % (37.0-47.0); Imm Gran Abs Auto 0.02 X10*3/uL (0.00-0.03); Imm Gran Pct Auto 0.3 % (0.0-0.4); Lymphocytes Absolute Auto 2.3 X10*3/uL (1.2-4.9); Lymphocytes Percent Auto 30.4 % (20-40); Mean Corpuscular HGB Conc 33.1 g/dl (31.0-35.0); Mean Corpuscular Hemoglobin 28.4 pg (27.0-33.0); Mean Corpuscular Volume 85.6 fL (80.0-98.0); Mean Platelet Volume 9.9 fL (9.4-12.3); Monocytes Absolute Auto 0.5 X10*3/uL (0.1-1.2); Monocytes Percent Auto 6.2 % (2-11); Neutrophils Absolute Auto 4.5 x10*3/uL (2.0-8.3); Neutrophils Percent Auto 60.8 % (45-73); Platelet Count 363 X10*3/uL (160-400); Red Blood Count 4.23 X10*6/uL (4.20-5.50); Red Cell Distribution Width 13.2 % (11.0-16.0); White Blood Count 7.4 X10*3/uL (4.8-10.8)
[2024-11-30 14:42] LABS: Estimated Average Glucose 108 mg/dL; Hemoglobin A1C 107.5545 umol/L; Hemoglobin A1c % 5.4 % (<6.0); Total Hemoglobin (HGBA1C) 3066.0161 umol/L
[2024-11-30 15:05] LABS: Alanine Aminotransferase 19 U/L (0-31); Albumin Level 3.7 g/dL (3.5-5.0); Alkaline Phosphatase 66 U/L (39-117); Anion Gap 9 (12-20); Aspartate Amino Transferase 22 U/L (5-31); Bilirubin Total 0.3 mg/dL (0.0-1.0); Blood Urea Nitrogen 11 mg/dL (9-16); Calcium 8.7 mg/dL (8.4-10.2); Carbon Dioxide 27 mmol/L (22-29); Chloride 108 mmol/L (96-108); Cholesterol 146 mg/dL (<200); Estimated Glomerular Filt Rate > 60; Glucose Random 76 mg/dL (60-115); HDL Cholesterol 53 mg/dL (>40); LDL Cholesterol Calculated 83 mg/dL (<100); Potassium 4.3 mmol/L (3.3-5.1); Sodium 140 mmol/L (135-145); TSH reflex Free T4 1.49 uIU/mL (0.32-4.0); Total Protein 7.8 g/dL (6.5-8.0); Triglycerides 53 mg/dL (<150)
[2024-12-01 08:21] LABS: HIV AB/AG Nonreactive (Nonreactive); HIV Num 1 0.06 S/CO (0.00-0.99); ~HepC Num1 0.12 S/CO (0.00-0.79); ~Hepatitis C Antibody Nonreactive (Nonreactive)
[2024-12-02 20:48] LABS: TS Negative Control Passed; TS Panel A 1; TS Panel B 1; TS Positive Control Passed; TSpotTB Negative (Negative)
== END 2024-11-30 11:08 | disposition home or self-care (01) ==
LOC: HO.CHCLDS 11:07
PROVIDERS: Visit Provider Internal Medicine
DX: E66.9 Obesity, unspecified (principal); Z11.1 Encounter for screening for respiratory tuberculosis
CPT/HCPCS: 36415; 80053; 80061; 83036; 84443; 85025; 86481; 86803; 87389

== ENCOUNTER 2025-02-10 14:35 | Outpatient (REF) | payer OTHER, SELFPAY ==
--- OUTSIDE RECORDS SUMMARY | 2025-02-10 16:38 | XMS_ITS | Clinical Summary ---
Author Organization [facility] Address [address] [place] [address] Care Team Providers Care Systems Admin Name Role Phone Pcp, Porsche MD Primary [...] - 2023-2 5 season) 2024 Influenza Vaccine (Season Ended) 2025 06/22/20 19 Zoster Vaccines (1 of 2) 2028 MMR [...] 5 Years) and At-Risk Patients (6 to 49 Years) Aged Out No longer eligi ble based on patient's age to complete this topic Insurance [facility] Taylor fitzpatrick [address] [id number] [facility] Care Teams Systems Admin Relationship Specialty Start Date End Date Porsche Matta MD [address] [place] [address] PCP - General Internal Medicine 04/13/24
--- OUTSIDE RECORDS SUMMARY | 2025-02-10 16:38 | XMS_ITS | Encounter Summary ---
Author Organization [facility] Address [address] [place] [address] Care Team Providers Care Filling Machine Operator Name Role Phone Piter Tobin MD Primary Care Provider Unavail Justin Calero MD Primary Care Provider Unavaila Dora Guthrie MD Primary Care Provider U navailable Reason for Visit * Reason Comments TEST RESULTS Encounter Details Date Type Department Care Team Description 11/25/2011 Telephone MANAGER CARD-[place] [address] [place] [address] Brianna Ureña CNM TEST RESULTS Social History Tobacco Use Types Packs/Day Years Used Date Smoking Tobacco: Never Smokeless Tobacco: Never Alcohol Use Standard Drinks/Week Comments Yes 0 (1 standard drink = 0.6 oz pur e alcohol) occassional Sex Assigned at Date Recorded Not on file documented as of this encounter Miscellaneous Notes * Telephone Encounter - Mena Lopez M.A. - 11/26/2011 3:41 PM EST CTP - Message left on machine for patient to call back * Telephone Encounter - Mena Lopez M.A. - 11/25/2011 9:06 AM EST Called pt, voicemail picks up, but voicemail is full. Will attempt to call patient later * Telephone Encounter - Mena Lopez M.A. - 11/25/2011 9:06 AM EST Message copied by MENA LOPEZ M.A. on FriNov 25, 2011 9:06 AM ------ Message from: BRIANNA UREÑA Created: FriNov 22, 2011 2:39 PM Under amount for treatment . Encourage patient to take meds as ordered and increse fluids ( and cranberry juice) documented in this encounter Plan of Treatment Not on file documented as of this encounter Visit Diagnoses Not on filedocumented in this encounter Care Teams Filling Machine Operator Relationship Specialty Start Date End Date Piter Tobin MD PCP - General Internal Medicine 08/29/11 10/16/15 Justin Sky MD PCP - General Internal Medicine 10/17/15 12/04/17 Dora Nicholson MD PCP - General Internal Medicine 12/05/17 documented as of this encounter
--- OUTSIDE RECORDS SUMMARY | 2025-02-10 16:38 | XMS_ITS | Clinical Summary ---
Author Organization [facility] Address [address] [place] [address] Care Team Providers Care Photovoltaic Solar Cell Designer Name Role Phone Dora Nicholson MD Primary Care Provider U randaailabigail Allergies No known active allergies Medications Medication Sig Dispensed Refills Start Date End Date Status Cetirizine HCl (ZYRTEC) 10 MG TABSIndications:Aller gic rhinitis, cause unspecified 1 TABLET DAILY 30 Tab 2 10/17/2009 Active medroxyPROGESTERone (DEPO-PROVERA) 150 MG/ML injection Inject 1 mL into the muscle Every 3 Months. 1 mL 3 11/14/2017 Active valacyclovir (VALTREX) 1 G tablet Take 1 Tab by mouth daily. 30 Tab 11 11/18/2017 Active vitamin D (ERGOCALCIFEROL) 41832 units capsule Take 1 capsule by mouth once a week for 90 days. 12 capsule 0 06/23/2019 Active Active Problems Problem Noted Date Vitamin D deficiency 07/29/2018 Positive test for herpes simplex virus ( HSV) antibody 12/08/2015 Allergic rhinitis, cause unspecified 03/2010 Immunizations Name Administration Dates Next Due Influenza Vaccine-preservati ve Free-quadrivalent 4 Years 06/22/2019 MMR (Xydoefl-Fdzwq-Ieemwpu) 06/24/2019 PPD-RBMG 06/22/2019,05/04/2018 Tdap 10/17/2009 Family History Medical History Relation Name Comments Hypertension Brother CTS CA Colon Father >50 Hypertension Father CTS CA Breast Father's side cousin, dx age 36 CA Lung Maternal Grandfather smoker Relation Name Status Comments Brother Father Father's side Maternal Grandfather Paternal Grandmother Social History Tobacco Use Types Packs/Day Years Used Date Smoking Tobacco: Never Smokeless Tobacco: Never Tobacco Cessation:Counseling Given: No Alcohol Use Standard Drinks/Week Comments Yes 0 (1 standard drink = 0.6 oz pur e alcohol) occassional Sex Assigned at Date Recorded Not on file Last Filed Vital Signs Vital Sign Reading Time Taken Comments Blood Pressure 110/68 06/22/2019 9:27 AM EDT Pulse 68 06/22/2019 9:27 AM EDT Temperature 36.8 ??C (98.3 ??F) 05/04/2018 1:15 PM ED T Respiratory Rate 14 04/28/2018 9:40 AM EDT Oxygen Saturation 97% 11/06/2010 8:48 AM EST Inhaled Oxygen Concentration - - Weight 89.9 kg (198 lb 4.8 oz) 06/22/2019 9:27 A M EDT Height 152.4 cm (5') 06/22/2019 9:27 AM EDT Body Mass Index 38.73 06/22/2019 9:27 AM EDT Plan of Treatment Health Maintenance Due Date Last Done Comments Covid-19 Vaccine (#1) 03/02/1979 MAMMOGRAM 2018 CERVICAL CANCER SCREENING 12/05/2018 12/05/2015, 11/2008 DTAP/TDAP/TD (2 - Td or Tdap) 10/17/2019 10/17/2009 CHOLESTEROL SCREENING 11/30/2020 11/30/2015, 010 BASELINE HEALTH EXAM 40-64 06/22/202106/22, 06/22/2019, 12/09/2017, Additional history exists BMI CHECK/ADVISE 10/13/2024 06/22/2019, 07/2019, 12/09/2017, Additional history exists DEPRESSION SCREENING/FOLLOWUP 10/13/2024, 11/30/2015, 11/30/2015, Additional history exists SOCIAL NEEDS SCREENING 10/13/2024 06/22/2019 INFLUENZA (Season Ended) 2025 06/22/2019 PNEUMOCOCCAL VACCINE FOR HIG H RISK PATIENTS (#1) 2043 Care Teams Photovoltaic Solar Cell Designer Relationship Specialty Start Date End Date Dora Nicholson MD PCP - General Internal Medicine 12/05/17
--- OUTSIDE RECORDS SUMMARY | 2025-02-10 16:38 | XMS_ITS | Clinical Summary ---
Author Organization [facility] Address [address] [place] [address] Phone Care Team Providers Care Rope Cutter Name Role Phone Dora Westbrook MD Primary Care Provider [phone] Encounters Date Type Department Care Team Description 12/02/2024 7:38 AM EST - 12/02/2024 11:59 PM EST Hospital Encounter [facility] Xray [address] [place] [address] Pain in left knee Discharge Disposition: Home or Self Care from Last 3 Months Surgical History Surgery Date Site/Laterality Comments OTHER [...] Last Done Comments Breast Cancer Screening 1978 Cervical Cancer Screening: P ap Smear 1999 Hepatitis B Vaccines (2 of 3 - 19+ 3-dose series) 09/15/2017 08/18/2017 Colorectal Cancer Screening: Colonoscopy 09/15/2022 Social Influencers of Health Screening 09/15/2022 COVID-19 Vaccine (3 - 2023-2 5 season) 2024 02/26/2021, 02/05/2021 Influenza Vaccine (Season Ended) 2025 06/22/2019 Depression Screening 11/23/2025 11/23/2024 Cholesterol Screening (Lipid Panel) 11/30/2029 11/30/2024 DTaP,Tdap,and Td Vaccines (3 - Td or Tdap) 11/23/2034 11/23/2024, 10/17/2009 MMR Vaccines Aged Out 06/24/2019, 08/18/2017 No longer eligible based on patient's age to complete this topic HIV Screening Completed 11/30/2024 Hepatitis C Screening Completed 11/30/2024 HIB Vaccines Aged Out No longer eligi [...] age to complete this topic Meningococcal B Vaccine Aged Out No l onger eligible based on patient's age to complete this topic Pneumococcal Vaccine: Pediatrics (0 to 5 Years) and At-Risk Patients (6 to 64 Years) Aged Out No longer eligible b ased on patient's age to complete this topic RSV Immunization Patients Under 20 months Aged Out No longer eligible b ased on patient's age to complete this topic Varicella Vaccines Aged Out No longer eligible based on patient's age to complete this topic Procedures Procedure Name Priority Date/Time Associated Diagnosis Comments XR KNEE 4+ VIEWS LEFT Routine 12/02/2024 7:58 AM EST Pain in left knee from Last 3 Months Results * XR Knee 4+ Views Left (12/02/2024 7:58 AM EST) Anatomical Region Laterality Modality Lower Extremities, Knee Left [facility] 12/02/2024 8:47 AM EST Impressions 12/02/2024 8:50 AM EST No fracture or dislocation. 1.1 cm medial subluxation of the femur relative to the tibia, of unknown chronicity in the absence of prior studies for comparison. There is marked narrowing of the medial compartment of the femoral-tibial joint space with [id number] appearance indicative of meniscal degeneration. There is evidence of mild to moderate osteoarthritis. Code 75011 -------- FINAL REPORT -------- Dictated By: Aleks Bentley Dictated Date: 12/02/2024 08:47 ET Assigned Physician: Aleks Bentley Reviewed and Electronically Signed By: Aleks Bentley Signed Date: 12/02/2024 08:50 ET Workstation ID: [id number] Transcribed By: Self Edit Transcribed Date: 12/02/2024 08:47 ET Narrative 12/02/2024 8:50 AM EST HISTORY: The patient is a 44-year-old female with left knee pain. No history of trauma is provided. FINDINGS: AP, lateral, internal rotation, and external rotation views of the left knee are obtained. No prior study is available for comparison. The study demonstrates no fracture or dislocation. There is, however, 1.1 cm medial subluxation of the femur relative to the tibia. There is marked narrowing of the medial compartment of the femoral-tibial joint space with amad-fw-mcid appearance, consistent with meniscal degeneration or injury. There is peaking of the tibial spines, and small osteophytes arise from the lateral tibial plateau and posterior supracondylar region of the femur, consistent with moderate osteoarthritis. No joint effusion is seen. Procedure Note Aleks Bentley MD - 12/02/2024 HISTORY: The patient is a 44-year-old female with left knee pain. Nohistory of trauma is provided. FINDINGS: AP, lateral, internal rotation, and external rotation views ofthe left knee are obtained. No prior study is available for comparison.The study demonstrates no fracture or dislocation. There is, however, 1.1cm medial subluxation of the femur relative to the tibia. There is markednarrowing of the medial compartment of the femoral-tibial joint space icgyeaiu-bx-uryf appearance, consistent with meniscal degeneration or injury.There is peaking of the tibial spines, and small osteophytes arise fromthe lateral tibial plateau and posterior supracondylar region of thefemur, consistent with moderate osteoarthritis. No joint effusion isseen. IMPRESSION: No fracture or dislocation. 1.1 cm medial subluxation of the femurrelative to the tibia, of unknown chronicity in the absence of priorstudies for comparison. There is marked narrowing of the medialcompartment of the femoral-tibial joint space with jnif-qp-nyon appearanceindicative of meniscal degeneration. There is evidence of mild to moderateosteoarthritis. Code 27379 -------- FINAL REPORT -------- Dictated By: Aleks Bentley Dictated Date: 12/02/2024 08:47 ET Assigned Physician: Aleks Bentley Reviewed and Electronically Signed By: Aleks Bentley Signed Date: 12/02/2024 08:50 ET Workstation ID: [id number] Transcribed By: Self Edit Transcribed Date: 12/02/2024 08:47 ET Oziel Wing IMG XR PROCEDURES Fin al Result from Last 3 Months Insurance Care Teams Rope Cutter Relationship Specialty Start Date End Date Dora Westbrook MD PCP - General Internal Medicine 12/05/17
--- OUTSIDE RECORDS SUMMARY | 2025-02-10 16:38 | XMS_ITS | Encounter Summary ---
Author Organization [employer] Address [address] [place] [address] Care Team Providers Care Parachute Harness Rigger Name Role Phone Oziel Sandra MD Primary Care Prov ider Encounter Details Date Type Department Care Team (Latest Contact Info) Description 02/10/2025 Travel Social History Tobacco Use Types Packs/Day Years Used Date Smoking Tobacco: Never Smokeless Tobacco: Never Alcohol Use Standard Drinks/Week Comments Not Currently 0 (1 standard drink = 0.6 oz [...] Access Q2 Not on file 11/23/2024 Comments No Sex and Gender Information Value Date Recorded Sex Assigned at Female 10/11/2024 8:53 AM EST Legal Sex Female 8:52 AM EST Gender Identity Female 11/23/2024 1:03 PM EST Sexual Orientation Straight 11/23/2024 1: 03 PM EST documented as of this encounter Plan of Treatment Not on file documented as of this encounter Visit Diagnoses Not on filedocumented in this encounter Additional Health Concerns Assessment Noted Time PHQ-9 Depression Total Score: 4 11/23/19 1:28 PM EST documented as of this encounter Care Teams Parachute Harness Rigger Relationship Specialty Start Date End Date Oziel Sandra MD [address] [place] [address] PCP - General Internal Medicine 11/23/24 documented as of this encounter
--- OUTSIDE RECORDS SUMMARY | 2025-02-10 16:38 | XMS_ITS | Encounter Summary ---
Author Organization [facility] Address [address] [place] [address] Care Team Providers Care Windows Systems Admin Name Role Phone Dora Nicholson MD Primary Care Provider U carlita Encounter Details Date Type Department Care Team Description 07/29/2018 Orders Only Adult Medicine B - [address] [address] Dora Nicholson MD Vitamin D deficiency (Primary Dx) Social History Tobacco Use Types Packs/Day Years Used Date Smoking Tobacco: Never Smokeless Tobacco: Never Alcohol Use Standard Drinks/Week Comments Yes 0 (1 standard drink = 0.6 oz pur e alcohol) occassional Sex Assigned at Date Recorded Not on file documented as of this encounter Plan of Treatment Not on file documented as of this encounter Visit Diagnoses Diagnosis Vitamin D deficiency- Primary Unspecified vitamin D deficiency documented in this encounter Care Teams Windows Systems Admin Relationship Specialty Start Date End Date Dora Nicholson MD PCP - General Internal Medicine 12/05/17 documented as of this encounter
--- OUTSIDE RECORDS SUMMARY | 2025-02-10 16:38 | XMS_ITS | Encounter Summary ---
Author Organization [facility] Address [address] [place] [address] Care Team Providers Care Permit Technician Name Role Phone Piter Tobin MD Primary Care Provider Unavail able Justin Sky MD Primary Care Provider Unavaila ble Dora Nicholson MD Primary Care Provider U navailable Encounter Details Date Type Department Care Team Description 02/14/2012 Walk In Clinic Visit Medical Records [address] [place] [id number] Natalie Anderson Social History Tobacco Use Types Packs/Day Years [...] on filedocumented in this encounter Care Teams Permit Technician Relationship Specialty Start Date End Date Piter Tobin MD PCP - General Internal Medicine 08/29/11 10/16/15 Justin Sky MD PCP - General Internal Medicine 10/17/15 12/04/17 Dora Nicholson MD PCP - General Internal Medicine 12/05/17 documented as of this encounter
--- OUTSIDE RECORDS SUMMARY | 2025-02-10 16:38 | XMS_ITS | Encounter Summary ---
Author Organization [employer] Address [address] [facility] [place] [address] Care Team Providers Care Case Assistant Name Role Phone Oziel Sandra MD Primary Care Prov ider Encounter Details Date Type Department Care Team (Latest Contact Info) Description 02/08/2025 Travel Social History Tobacco Use Types Packs/Day [...] documented as of this encounter Care Teams Case Assistant Relationship Specialty Start Date End Date Oziel Sandra MD [address] [place] [address] PCP - General Internal Medicine 11/23/24 documented as of this encounter
--- OUTSIDE RECORDS SUMMARY | 2025-02-10 16:38 | XMS_ITS | Clinical Summary ---
Author Organization [employer] Address [address] [facility] [address] [place] [address] Care Team Providers Care Associate Web Developer Name Role Phone Oziel Sandra MD Primary Care Prov ider Allergies No known active allergies Medications * This document contains information received from the source organization and may not represent a complete record from that organization. Omeprazole 20 MG tablet delayed-release Take 1 [...] modifications discussed, follow up as needed Encounters * This document contains information received from the source organization and may not represent a complete record from that organization. Date Type Department Care Team Description 02/10/2025 9:00 AM EDT Procedure Visit [facility] [address] [place] [address] Griselda Quinonez CNM Cervical cancer screening (Primary Dx); Screening examination for venereal disease; Other depression; Family history of breast cancer; Stress incontinence 02/10/2025 Travel 02/08/2025 Travel 01/04/2025 Telephone [facility] [address] [place] [address] Oziel Sandra MD 01/04/2025 Travel 11/30/2024 Travel 11/30/2024 Telephone [facility] [address] [place] [address] Oziel Sandra MD 11/23/2024 1:45 PM EST Office Visit [facility] [address] [place] [address] Oziel Sandra MD Encounter for medical examination to establish care (Primary Dx); Obesity (BMI 30-39.9); Screening for colon cancer; Encounter for screening mammogram for malignant neoplasm of breast; Acute pain of left knee; Screening-pulmonary TB; Chronic rhinitis; Encounter for immunization; Gastroesophageal reflux disease without esophagitis 11/23/2024 Travel 11/16/2024 Patient Outreach [facility] [address] [place] [address] Oziel Sandra MD Pre-visit Planning ([facility] unable to reach [facility]) from Last 3 Months Immunizations Name Administration Dates Next Due Tdap 11/23/2024 Family History Medical History Relation Name Comments Colon cancer Brother Breast cancer Cousin 1 paternal cousi n Breast cancer Cousin 2 separate pater nal cousin Colon cancer Father Diabetes Father Osteoarthritis Father No Known Problems Mother Relation Name Status Comments Brother Cousin 1 Alive Cousin 2 Alive Father Mother Social History Tobacco Use Types Packs/Day Years Used Date Smoking Tobacco: Never Smokeless Tobacco: Never Tobacco Cessation:Counseling Given: Not Answered Alcohol Use Standard Drinks/Week Comments Not Currently [...] Sign Reading Time Taken Comments Blood Pressure 127/73 02/10/2025 9:01 AM EDT Pulse 78 02/10/2025 9:01 AM EDT Temperature 36.4 ??C (97.6 ??F) 02/10/2025 9:01 AM ED T Respiratory Rate 16 02/10/2025 9:01 AM EDT Oxygen Saturation 98% 02/10/2025 9:01 AM EDT Inhaled Oxygen Concentration - - Weight 87.3 kg (192 lb 6.4 oz) 02/10/2025 9:01 A M EDT Height 152.4 cm (5') 02/10/2025 9:01 AM EDT Body Mass Index 37.58 02/10/2025 9:01 AM EDT Plan of Treatment Health Maintenance Due Date Last Done Comments CT Colonography 1978 Colonoscopy 1978 Colorectal Cancer Screening 1978 FIT DNA/Cologuard 1978 FIT 1978 FOBT 1978 Sigmoidoscopy 1978 Pap Smear 1999 Cervical Cancer Screening 2008 HPV/Cotest 2008 Hepatitis B Vaccines (2 of 3 - 19+ 3-dose series) 09/15/2017 08/18/2017 Mammogram 2018 COVID-19 Vaccine (3 - 2023-2 5 season) 2024 02/26/2021, 02/05/2021 Influenza Vaccine (#1) 2024 06/22/2019 Alcohol/Substance Use Screening 11/23/2025 11/23/2024 Depression Screening 11/23/2025 11/23/2024, 11/23/2024 SDOH Screening 11/23/2025 11/23/2024 Family Planning (PISQ) 02/10/2026 02/10/2025 Tobacco Screening 02/10/2026 02/10/2025 Zoster Vaccines (1 of 2) 2028 Lipid Panel 11/30/2029 11/30/2024 DTaP/Tdap/Td Vaccines (3 - T d or Tdap) 11/23/2034 11/23/2024, 10/17/2009 RSV Patients and Patients Aged 60 years or older (1 - 1-dose 75+ series) 2053 HIV Screening Completed 11/30/2024 Hepatitis C Screening [...] XR KNEE 4+ VIEWS LEFT Routine 12/02/2024 Acute pain of left knee T-SPOT(R).TB Routine 11/30/2024 11:09 AM EST Screening-pulmonar y TB HEPATITIS C AB W/REFL TO HCV RNA, QN, PCR Routine 11/30/2024 11:09 AM EST Obesity (BMI 30-39.9) HIV 1/2 ANTIGEN/ANTIBODY, FOURTH GENERATION W/RFL Routine 11/30/2024 11:09 AM EST Obesity (BMI 30-39.9) HEMOGLOBIN A1C Routine 11/30/2024 11:09 AM EST Obesity (BMI 30-39.9) TSH W/REFLEX TO FT4 Routine 11/30/2024 1 1:09 AM EST Obesity (BMI 30-39.9) LIPID PANEL, STANDARD Routine 11/30/2024 11:09 AM EST Obesity (BMI 30-39.9) COMPREHENSIVE METABOLIC PANEL Routine 11/30/2024 11:09 AM EST Obesity (BMI 30-39.9) CBC WITH AUTO DIFFERENTIAL Routine 11/30/2024 11:09 AM EST Obesity (BMI 30-39.9) from Last 3 Months Results * XR Knee 4+ Views Left (12/02/2024) Anatomical Region Laterality Modality Lower Extremities, Knee Left Radiogra phic Imaging Oziel Wing MD IMG XR PROCEDURES Final Result * T-SPOT??.TB (11/30/2024 11:09 AM EST) Pathologist [facility] T Spot TB Negative Negative [facility] Comment:A negative test resu lt does not exclude the possibilityof exposure to or infection with Mycobacteriumtuberculosis (M. tuberculosis). Patients with recentexposure to TB infected individuals exhibiting anegative T-SPOT.TB result should be considered forretesting within 6 weeks or if other relevant clinicalsymptoms indicate. Results from T-SPOT.TB testing mustbe used in conjunction with each individual'sepidemiological history, current medical status,and results of other diagnostic evaluations.The T-SPOT.TB test is qualitative and results arereported as positive, borderline, or negative, giventhat the test controls perform as expected. In linewith the Centers for Disease Control and Prevention's2010 recommendation to report quantitative measurementsalongside the qualitative result, the laboratoryprovides spot counts for informational purposes only.The T-SPOT.TB test should not be interpreted as aquantitative test. TS PANEL A 1 [facility] TS PANEL B 1 [facility] Negative Control Passed [facility] Positive Control Passed [facility] Comment:For additional infor mation, please refer tohttp://education.[employer]faq/CDX756(This link is being provided for informational/educational purposes only.)THIS TEST WAS PERFORMED AT:[employer]/[facility] [place] [address]DTGFJQRBERENICE HWANG MD,PHD 11/30/2024 11:0 9 AM EST 11/30/2024 2:14 PM EST us Oziel Wing MD LAB BLOOD ORDERABL ES Final Result Performing Organization Address City/[facility]/ZIP Co de Phone Number [facility] [address] [place] [phone] * TSH W/Reflex to FT4 (11/30/2024 11:09 AM EST) TSH reflex Free T4 1.49 0.32 - 4.0 uIU/mL [facility] Blood Venous blood specimen / Unknown 11/30/2024 11:09 AM EST 11/30/2024 2:14 PM EST us Oziel Wing MD LAB BLOOD ORDERABL ES Final Result Performing Organization Address City/[facility]/ZIP Co de Phone Number [facility] [address] [place] [phone] * (ABNORMAL) CBC auto differential (11/30/2024 11:09 AM EST) White Blood Count 7.4 4.8 - 10.8 X10*3/uL [facility] Red Blood Count 4.23 4.20 - 5.50 X10*6/uL [facility] Hemoglobin 12.0 12.0 - 16.0 g/dl [facility] Hematocrit 36.2(L) 37.0 - 47.0 % [facility] Mean Corpuscular Volume 85.6 80.0 - 98.0 fL [facility] Mean Corpuscular Hemoglobin 28.4 27.0 - 33.0 pg [facility] Mean Corpuscular HGB Conc 33.1 31.0 - 35.0 g/dl [facility] Red Cell Distribution Width 13.2 11.0 - 16.0 % [facility] Platelet Count 363 160 - 400 X10*3/uL [facility] Mean Platelet Volume 9.9 9.4 - 12.3 fL [facility] Neutrophils Percent Auto 60.8 45 - 73 % [facility] Imm Gran Pct Auto 0.3 0.0 - 0.4 % [facility] Lymphocytes Percent Auto 30.4 20 - 40 % [facility] Monocytes Percent Auto 6.2 2 - 11 % [facility] Eosinophils Percent Auto 1.9 0 - 4 % [facility] Basophils Percent Auto 0.4 0 - 2 % [facility] NRBC Pct Auto 0.0 0.0 - 0.2 /100WBC [facility] Neutrophils Absolute Auto 4.5 2.0 - 8.3 x10*3/uL [facility] Imm Gran Abs Auto 0.02 0.00 - 0.03 X10*3/uL [facility] Lymphocytes Absolute Auto 2.3 1.2 - 4.9 X10*3/uL [facility] Monocytes Absolute Auto 0.5 0.1 - 1.2 X10*3/uL [facility] Eosinophils Absolute Auto 0.1 0.0 - 0.4 X10*3/uL [facility] Basophils Absolute Auto 0.0 0.0 - 0.2 X10*3/uL [facility] NRBC Abs Auto 0.000 0.0 - 0.012 X10*3/uL [facility] Blood Venous blood specimen / Unknown 11/30/2024 11:09 AM EST 11/30/2024 2:12 PM EST us Oziel Wing MD LAB BLOOD ORDERABL ES Final Result [facility] [address] [place] [address] [phone] * Hepatitis C Antibody with Reflex to HCV, RNA, Quantitative, Real-Time PCR (11/30/2024 11:09 AM EST) Pathologist [facility] Hepatitis C Antibody Nonreactive Nonreactive [facility] Comment:Antibodies to HCV no t detected; does not exclude early acuteHCV infection. Blood Venous blood specimen / Unknown 11/30/2024 11:09 AM EST 11/30/2024 2:14 PM EST us Oziel Wing MD LAB BLOOD ORDERABL ES Final Result Performing Organization Address [facility]/ZIP Co de Phone Number [facility] [address] [place] [phone] * HIV-1/2 Antigen and Antibodies, Fourth Generation, with Reflexes (11/30/2024 11:09 AM EST) [facility] HIV AB/AG Nonreactive Nonreactive [facility] Comment:HIV-1 p24 Ag and/or HIV-1/HIV-2 Ab not detected.A test result that is nonreactive does not exclude thepossibility of exposure to or infection with HIV-1 and/orHIV-2. Nonreactive results in this assay for individualswith prior exposure to HIV-1 and/or HIV-2 may be due toantigen and antibody levels that are below the limit ofdetection of this assay.The [employer] HIV Ag/Ab Combo assay result andsupplemental assay results should be interpreted inconjunction with the patient's clinical presentation,history and other laboratory results. If the results areinconsistent with clinical evidence, additional testing issuggested to confirm the result. Blood Venous blood specimen / Unknown 11/30/2024 11:09 AM EST 11/30/2024 2:14 PM EST us Oziel Wing MD LAB BLOOD ORDERABL ES Final Result Performing Organization Address City/[facility]/ZIP Co de Phone Number [facility] [address] [place] [phone] * Hemoglobin A1c (11/30/2024 11:09 AM EST) Hemoglobin A1c 5.4 <6.0 % [facility] Comment:Hemoglobin A1C Refer ence Range Adults: 4.8 - 6.0 % Non diabetic: < 6.0 % Goal: < 7.0 %Additional Action Suggested: > 8.0 %Note: Hemoglobin A1c results are invalid for patients with abnormal amounts of HbF. Blood transfusions may impact the HbA1c concentration in the patient sample. Estimated Average Glucose 108 mg/dL [facility] Comment:eAG = Estimated ave rage glucose which is %A1C expressed asaverage glucose, using the formula of the Q9P-[id number] Glucose study (ADAG), Diabetes Care, Vol.31,#8,May. 2007 Blood Venous blood specimen / Unknown 11/30/2024 11:09 AM EST 11/30/2024 2:12 PM EST Oziel Wing MD LAB BLOOD ORDERABL ES Final Result [facility] [address] [place] [phone] * Lipid Panel, Standard (11/30/2024 11:09 AM EST) Triglycerides 53 <150 mg/dL [facility] Comment:Desirable Triglyceri de: less than 150 mg/dLBorderline High Triglyceride 150-199 mg/dLHigh Triglyceride: 200-499 mg/dLVery High Triglyceride: greater than or equal to 5OO mg/dL Cholesterol 146 <200 mg/dL [facility] Comment:Desirable Cholestero l: less than 200 mg/dLBorderline High Cholesterol: 200-239 mg/dLHigh Cholesterol: greater than 239 mg/dL LDL Cholesterol Calculated 83 <100 mg/dL [facility] Comment:Desirable LDL: less than 100 mg/dLNear Optimal/Above Optimal LDL: 110- 129 mg/dLBorderline High LDL: 130-159 mg/dLHigh LDL: 160-189 mg/dLVery High LDL: greater than or equal to 190 mg/dL HDL Cholesterol 53 >40 mg/dL [facility] Comment:Desirable HDL: great er than 40 mg/dL Note: This HDL assay may give artificially low results in patients with liver disease. Blood Venous blood specimen / Unknown 11/30/2024 11:09 AM EST 11/30/2024 2:14 PM EST us Oziel Wing MD LAB BLOOD ORDERABL ES Final Result [facility] [address] [place] [phone] * (ABNORMAL) Comprehensive Metabolic Panel (11/30/2024 11:09 AM EST) Sodium 140 135 - 145 mmol/L [facility] Potassium 4.3 3.3 - 5.1 mmol/L [facility] Chloride 108 96 - 108 mmol/L [facility] Carbon Dioxide 27 22 - 29 mmol/L [facility] Anion Gap 9(L) 12 - 20 [facility] Urea Nitrogen (BUN) 11 9 - 16 mg/dL [facility] Creatinine, Serum 0.73 0.5 - 1.4 mg/dL [facility] Estimated Glomerular Filt Rate >60 [facility] Comment:Chronic Kidney Disea se: Estimated GFR < 60 mL/min/1.20u9Zapbmq Kidney Disease: Estimated GFR < 15 mL/min/1.73m2 Glucose 76 60 - 115 mg/dL [facility] Calcium 8.7 8.4 - 10.2 mg/dL [facility] Bilirubin, Total 0.3 0.0 - 1.0 mg/dL [facility] Aspartate Amino Transferase 22 5 - 31 U/L [facility] Alanine Aminotransferase 19 0 - 31 U/L [facility] Total Protein 7.8 6.5 - 8.0 g/dL [facility] Albumin Level 3.7 3.5 - 5.0 g/dL [facility] Alkaline Phosphatase 66 39 - 117 U/L [facility] Blood Venous blood specimen / Unknown 11/30/2024 11:09 AM EST 11/30/2024 2:14 PM EST Oziel Wing MD LAB BLOOD ORDERABL ES Final Result [facility] [address] [place] [phone] from Last 3 Months Insurance [facility] Care Teams Associate Web Developer Relationship Specialty Start Date End Date Oziel Sandra MD [address] [place] [phone] PCP - General Internal Medicine 11/23/24
--- OUTSIDE RECORDS SUMMARY | 2025-02-10 16:38 | XMS_ITS | Encounter Summary ---
Author Organization [employer] Address [address] [place] [address] [address] [place] [address] Care Team Providers Care Shoe Cementer Name Role Phone Oziel Sandra MD Primary Care Prov ider Reason for Referral * Consultation (Urgent) - Closed Specialty Diagnoses / Procedures Referred By Contmike t Referred To Contact Behavioral Health Diagnoses Other depression Griselda Quinonez CNM [address] [place] [address] Phone: tel: fax: Referral ID Status Reason Start Date Expiration Date V isits Requested Visits Authorized [id number] Closed Specialty Services Required 02/10/2025 02/10/2026 1 1 Reason for Visit * Reason Comments Gynecologic Exam Encounter Details Date Type Department Care Team (Latest Contact Info) Description 02/10/2025 9:00 AM EDT Procedure Visit [facility] [address] [place] [address] Griselda Quinonez CNM [address] [place] [address] Cervical cancer screening (Primary Dx); Screening examination for venereal disease; Other depression; Family history of breast cancer; Stress incontinence Social History Tobacco Use Types Packs/Day Years [...] Mass Index 37.58 02/10/2025 9:01 AM EDT documented in this encounter Progress Notes * Griselda Quinonez CNM - 02/10/2025 9:00 AM EDT Subjective Patient ID: Araceli Wright is a 44 y.o. female who presents for pap Mammogram ordered 11/2024, still waiting on appointment. Last pap years ago, no prior abnormal. Remote history of chlamydia. Would like pap based STI testing today. 1 AMAB partner x 1 1y, no safety concerns. Notes occasional cramping outside of menstrual cycle. [facility] stress urinary incontinence. No other vaginal/urinary symptoms. Monthly menses x 2-3d, no heavy flow or bothersome cramping. History of depression afterbirth of 25 y old son. Notes persistent depressive symptoms, occasionally passive SI. No active suicidal ideation/homicidal ideation. Would like to resume therapy. Doesn't have time to meet with today, would like call. Review of Systems Gastrointestinal: Negative for constipation, diarrhea, nausea and vomiting. Genitourinary: Negative for dyspareunia, dysuria, frequency, genital sores, hematuria, menstrual problem, pelvic pain, urgency, vaginal bleeding, vaginal discharge and vaginal pain. No abnormal pap, no abnormal bleeding, no breast pain, no breast mass, no nipple discharge Objective BP 127/73 (BP Location: Left arm, Patient Position: Sitting, BP Cuff Size: Large adult) Pulse 78 Temp 97.6 ??F (36.4 ??C) (Temporal) Resp 16 Ht 5' (1.524 m) Wt 192 lb 6.4 oz (87.3 kg) LMP/ (Exact Date) SpO2 98% BMI 37.58 kg/m?? Physical Exam Constitutional: Appearance: Normal appearance. Chest: Breasts: Right: Normal. No swelling, bleeding, inverted nipple, mass, nipple discharge, skin change or tenderness. Left: Normal. No swelling, bleeding, inverted nipple, mass, nipple discharge, skin change or tenderness. Genitourinary: General: Normal vulva. Labia: Right: No rash, tenderness, lesion or injury. Left: No rash, tenderness, lesion or injury. Vagina: Normal. No signs of injury and foreign body. No vaginal discharge, erythema, tenderness, bleeding or lesions. Cervix: No cervical motion tenderness, discharge, friability, lesion, erythema, cervical bleeding or eversion. Uterus: Normal. Not enlarged and not tender. Adnexa: Right adnexa normal and left adnexa normal. Right: No mass, tenderness or fullness. Left: No mass, tenderness or fullness. Comments: Mild cystocele with Valsalva, good tone with Kegels. Menses noted. Lymphadenopathy: Upper Body: Right upper body: No supraclavicular or axillary adenopathy. Left upper body: No supraclavicular or axillary adenopathy. Neurological: Mental Status: She is alert. Psychiatric: Mood and Affect: Mood normal. Behavior: Behavior normal. Assessment/Plan Diagnoses and all orders for this visit: Cervical cancer screening - Pap Smear Cotest 5y if normal/HPV negative. Will contact with results. Reviewed normal vs abnormal perimenopausal bleeding changes. Report prolonged, frequent or heavy bleeding. Report bleeding after a year of no bleeding. Reviewed low likelihood of at this time. She is fine with this. Report symptoms/missed menses. Benign pelvic exam today. If all testing from today negative and intermittent cramping persists, will order ultrasound. Screening examination for venereal disease - STI testing add on (NG, CT, Trich) Pap based STI testing ordered. Other depression - Referral to Behavioral Health; Future Referred to . Urged self care, report worsening mood symptoms. Family history of breast cancer Both cousins are still living. Urged to talk with them to see if genetics testing available and letme know results. If cousin positive for deleterious mutation, will refer Araceli for genetics consult. Stress incontinence Faiza taught for stress incontinence. Let me know if not helpful in next 1-2m and I will refer to urogyn. documented in this encounter Plan of Treatment Scheduled Orders Name Type Priority Associated Diagnoses Orde r Schedule Pap Smear Pathology and Cytology Routine Cervical cancer screening Ordered: 02/10/2025 STI testing add on (NG, CT, Trich) Pathology and Cytology Routine Screening examination for venereal disease Ordered: 02/10/2025 Scheduled Referrals Name Type Priority Associated Diagnoses Order Schedule Referral to Behavioral Health Outpatient Referral Urgent Other depression Expected: 02/10/2025 (Approximate), Expires: 02/10/2026 documented as of this encounter Visit Diagnoses Diagnosis Cervical cancer screening- Primary Screening for malignant neoplasm of the cervix Screening examination for venereal disease Other depression Family history of breast cancer Family history of malignant neoplasm of breast Stress incontinence Female stress incontinence documented in this encounter Additional Health Concerns Assessment Noted Time PHQ-9 Depression Total Score: 4 11/23/19 25 1:28 PM EST documented as of this encounter Care Teams Shoe Cementer Relationship Specialty Start Date End Date Oziel Sandra MD [address] [place] [phone] PCP - General Internal Medicine 11/23/24 documented as of this encounter
[2025-02-12 12:49] LABS: C. trachomatis RNA TMA NOT DETECTED (NOT DETECTED); N. gonorrhoeae RNA TMA NOT DETECTED (NOT DETECTED); Trichomonas (NAAT) DETECTED (NOT DETECTED)
[2025-02-15 14:19] LABS: HPV Genotype 16 Negative (Negative); HPV Genotype 18 Negative (Negative); HPV High Risk Negative (Negative)
== END 2025-02-10 14:36 | disposition home or self-care (01) ==
LOC: HO.HHCLNP 14:35
PROVIDERS: Visit Provider Advanced Practice Midwife
DX: Z11.3 Encounter for screening for infections with a predominantly sexual mode of transmission (principal)
CPT/HCPCS: 87491; 87591; 87626; 87661; 88175

== ENCOUNTER 2025-04-08 13:34 | Outpatient (REF) | payer OTHER, SELFPAY | END 2025-04-08 13:35 | disposition home or self-care (01) | LOC: HO.MAMMO 13:34 | PROVIDERS: PCP Internal Medicine; Visit Provider Internal Medicine | DX: Z12.31 Encounter for screening mammogram for malignant neoplasm of breast (principal) | CPT/HCPCS: 77063; 77067 ==

== ENCOUNTER → 2025-04-08 13:45 | Outpatient (BNV) | payer OTHER, SELFPAY | PROVIDERS: PCP Internal Medicine; Visit Provider Internal Medicine | DX: Z12.31 Encounter for screening mammogram for malignant neoplasm of breast (principal) | CPT/HCPCS: 77063; 77067 ==

== ENCOUNTER 2025-05-19 11:40 | Outpatient (REF) | payer OTHER, SELFPAY ==
--- NOTE | ~2025-05-19 | MM_ITS ---
EXAMINATION: MM DIAGNOSTIC DIGITAL BREAST TOMOSYNTHESIS, LEFT CLINICAL INFORMATION: Call back from screening for focal asymmetry in the upper outer left breast. COMPARISON: Mammography: [facility] on PACS. TECHNIQUE: Digital breast tomosynthesis is performed in both the craniocaudal and mediolateral oblique views along with computer-aided detection (CAD). Synthesized 2D images are generated from the tomosynthesis. FINDINGS: There are scattered areas of fibroglandular density (ACR BI-RADS breast composition Category b). Previously seen focal asymmetry in the upper outer left breast middle to posterior depth does not persist on additional imaging projections and likely represented overlapping breast tissue. There are no significant masses, abnormal calcifications, or other abnormalities. MM/MM tomosynthesis added views L IMPRESSION: No mammographic evidence of malignancy. ASSESSMENT: BI-RADS BI-RADS 1 - Negative RECOMMENDATION: 1 year F/U Results were provided to the patient at time of visit by the technologist. This patient's information was entered into a reminder system with a target due date for their next mammogram. Electronically signed by: Lucita Garcia DO 05/19/2025 12:37 PM EDT
--- OUTSIDE RECORDS SUMMARY | 2025-05-19 12:16 | XMS_ITS | Clinical Summary ---
Author Organization [employer] Address [address] [facility] [address] [place] [address] Care Team Providers Care Temperature Control Inspector Name Role Phone Oziel Sandra MD Primary Care Prov ider Allergies No known active allergies Medications * This document contains information received from the source organization and may not represent a complete record from that organization. Omeprazole 20 MG tablet delayed-releas e Take 1 tablet (20 mg) by mouth Once per day. 90 tablet 3 11/23/19 25 026 Active cetirizine (ZyrTEC) 10 MG tablet Take 1 tablet (10 mg) by mouth Once per day. 30 tablet 11 11/23/19 25 026 Active fluticasone (Flonase) 50 MCG/ACT nasal spray INHALE 1 - 2 SPRAYS IN EACH NOSTRIL ONCE DAILY 16 g 2 04/27/20 25 Active fluticasone (Flonase) 50 MCG/ACT nasal spray Administer 1-2 sprays into each nostril Once per day. Shake gently. Before first use, prime pump. After use, clean tip and replace cap. 16 g 2 11/23/19 25 025 Discontinued Active Problems Problem Noted Date Diagnosed Date MDD (major depressive disord er), recurrent episode, moderate 02/18/2025 Encounter for medical examination to establish c [...] without esophagi tis 11/23/2024 Assessment & Plan (03/15/2025 2:58 PM EDT): Lifestyle modifications reviewed, continue omeprazole as prescribed, follow up in 4-6 months or if new symptoms arise Assessment & Plan (11/23/2024 2:09 PM EST): Will start on omeprazole, lifestyle modifications discussed, follow up as needed Encounters * This document contains information received from the source organization and may not represent a complete record from that organization. Date Type Department Care Team Description 04/26/2025 Refill [facility] [address] [place] [address] Oziel Sandra MD from Last 3 Months Immunizations Immunization Administration Dates Next Due Tdap 11/23/2024 Family [...] Answer Date Recorded Patient Health Questionnaire-9 Score 17 02/18/2025 Patient Health Questionnaire-9 Score 17 02/18/2025 Last PHQ-9: Questionnaire Data Not on file 0 02/18/2025 Housing Stability Answer Date Recorded What is [...] Answer Date Recorded Patient Health Questionnaire-2 Score 6 02/18/2025 Internet Access Answer Date Recorded Internet Access Q1 Yes 11/23/2024 Internet Access Q2 Not on file 11/23/2024 Comments No Intention Date Recorded Ambivalent about becoming (find ing) 02/10/2025 Sex and Gender Information Value Date Recorded Sex Assigned at Female 10/11/2024 8:53 AM EST Legal Sex Female 8:52 AM EST Gender Identity Female 11/23/2024 1:03 PM EST Sexual Orientation Straight 11/23/2024 1: 03 PM EST Last Filed Vital Signs Vital Sign Reading Time Taken Comments Blood Pressure 127/73 02/10/2025 9:01 AM EDT Pulse 78 02/10/2025 9:01 AM EDT Temperature 36.4 C (97.6 F) 02/10/2025 9:01 AM EDT Respiratory Rate 16 02/10/2025 9:01 AM EDT Oxygen Saturation 98% 02/10/2025 9:01 AM EDT Inhaled Oxygen Concentration - - Weight 87.3 kg (192 lb 6.4 oz) 02/10/2025 9:01 A M EDT Height 152.4 cm (5') 02/10/2025 9:01 AM EDT Body Mass Index 37.58 02/10/2025 9:01 AM EDT Plan of Treatment Upcoming Encounters Date Type Department Care Team (Late st Contact Info) Description 05/30/2025 9:15 AM EDT Office Visit [facility] [address] [place], [place] [phone] Griselda Colon, CNM [address] [place], [place] [phone] Health Maintenance Due Date Last Done Comments CT Colonography 1980 Colonoscopy 1980 Colorectal Cancer Screening 1980 FIT DNA/Cologuard 1980 FIT 1980 FOBT 1980 Sigmoidoscopy 1980 Disability Screening 1980 Hepatitis B Vaccines (2 of 3 - 19+ 3-dose series) 09/15/2017 08/18/2017 COVID-19 Vaccine (2023-2 5 season) 2024 02/26/2021, 02/05/2021 Influenza Vaccine (#1) 2025 06/22/2019 Depression Monitoring 08/21/2025 02/18/2025 , 02/18/2025 Alcohol/Substance Use Screening 11/23/2025 11/23/2024 SDOH Screening 11/23/2025 11/23/2024 Family Planning (PISQ) 02/10/2026 02/10/2025 Tobacco Screening 02/10/2026 02/10/2025 Mammogram 04/08/2027 04/08/2025 Zoster Vaccines (1 of 2) 2028 Lipid Panel 11/30/2029 11/30/2024 Cervical Cancer Screening 02/10/2030 HPV/Cotest 02/10/2030 02/10/2025 Pap Smear 02/10/2030 02/10/2025 DTaP/Tdap/Td Vaccines (3 - T d or [...] Years) and At-Risk Patients (6 to 49) Years Aged Out No longer eligible b ased on patient's age to complete this topic RSV under 20 months Aged Out No longe r eligible based on patient's age to complete this topic Rotavirus Vaccines Aged Out No longer eligible based on patient's age to complete this topic Procedures Procedure Name Priority Date/Time Associated Diagnosis Comments BI MAMMOGRAM SCREENING TOMOSYNTHESIS BILATERAL Routine 04/08/2025 1:36 PM EDT Encounter for screening mammogram for malignant neoplasm of breast HPV DNA, LOW/HIGH RISK Routine 8:24 AM EDT PAP SMEAR Routine 02/10/2025 8:24 AM EDT Cervical cancer screening HEPATITIS C AB W/REFL TO HCV RNA, QN, PCR Routine 11/30/2024 11:09 AM EST Obesity (BMI 30-39.9) HIV 1/2 ANTIGEN/ANTIBODY, FOURTH GENERATION W/RFL Routine 11/30/2024 11:09 AM EST Obesity (BMI 30-39.9) LIPID PANEL, STANDARD Routine 11/30/2024 11:09 AM EST Obesity (BMI 30-39.9) from Last 3 Months or Most Recently Relevant to Health Maintenance Results * BI Mammogram Screening Tomosynthesis Bilateral (04/08/2025 1:36 PM EDT) Anatomical Region Laterality Modality Breast Bilateral Mammography 04/08/2025 1:36 PM EDT Narrative 04/23/2025 11:02 PM EDT [facility] [address] [place] [address] Mammography Report Signed Patient: Araceli Wright MR#: [id number] : 1980 Acct:[id number] Age/Sex: 44 / F ADM Date: 04/08/25 Loc: HO.MAMMO Attending Dr: Oziel Wing MD Ordering Physician: Oziel Sandra MD Results: 0Incomplete: Needs Additional Imaging Evaluation Date of Service: 04/08/25 Follow Up: Additional Imagi ng Procedure(s): MM tomosynthesis screening BI Accession Number(s): [id number] cc: Oziel Sandra MD EXAMINATION: MM SCREENING DIGITAL BREAST TOMOSYNTHESIS, BILATERAL CLINICAL INFORMATION: Screening. Asymptomatic. COMPARISON: Mammography: Baseline. TECHNIQUE: Digital breast mammography with tomosynthesis is performed in both the craniocaudal and mediolateral oblique views along with computer-aided detection (CAD). FINDINGS: There are scattered areas of fibroglandular density (ACR BI-RADS breast composition Category b). Right: There are no significant masses, abnormal calcifications, or other abnormalities. Left: Focal asymmetry upper outer breast middle depth. No suspicious calcifications or other abnormal findings. MM/MM tomosynthesis screening BI IMPRESSION: Additional imaging is recommended ASSESSMENT: BI-RADS BI-RADS 0 - Incomplete: Needs additional Imaging. RECOMMENDATION: 1. Additional views of the left breast 2. Targeted ultrasound if warranted after review of the additional views. 3. Radiology department staff will contact the patient for additional imaging. 4. Patient describes a new skin lesion in the left breast. Recommend clinical evaluation. Additional Imaging required This examination should not preclude the clinical evaluation of a suspicious palpable abnormality. This patient's information was entered into a reminder system with a target due date for their next mammogram. Electronically signed by: Lucita Garcia DO 04/23/2025 10:59 PM EDT RP Dictated By: Lucita Garcia DO Signed By: <Electronically signed by Lucita Garcia DO in OV> 04/23/25 2259 DD/ 1336 TD/TT: 04/08/25 1408 Data Report Analyst: Procedure Note Donotuseinterpreter, Image - 04/23/2025 [facility] [address] [place], [place] [address] Mammography Report Signed Patient: Araceli WrightMR#: [id number] : 1980Acct:[id number] Age/Sex: 44 / FADM Date: 04/08/25 Loc: HO.MAMMO Attending Dr: Oziel Wing MD Ordering Physician: Oziel Sandra MD Results: 0Incomplete: Needs Additional Imaging Evaluation Date of Service: 04/08/25Follow Up: Additional Imagi ng Procedure(s): MM tomosynthesis screening BI Accession Number(s): [id number] cc: Oziel Sandra MD EXAMINATION: MM SCREENING DIGITAL BREAST TOMOSYNTHESIS, BILATERAL CLINICAL INFORMATION: Screening. Asymptomatic. COMPARISON: Mammography: Baseline. TECHNIQUE: Digital breast mammography with tomosynthesis is performed in both the craniocaudal and mediolateral oblique views along with computer-aided detection (CAD). FINDINGS: There are scattered areas of fibroglandular density (ACR BI-RADS breast composition Category b). Right: There are no significant masses, abnormal calcifications, or other abnormalities. Left: Focal asymmetry upper outer breast middle depth. No suspicious calcifications or other abnormal findings. MM/MM tomosynthesis screening BI IMPRESSION: Additional imaging is recommended ASSESSMENT: BI-RADS BI-RADS 0 - Incomplete: Needs additional Imaging. RECOMMENDATION: 1. Additional views of the left breast 2. Targeted ultrasound if warranted after review of the additional views. 3. Radiology department staff will contact the patient for additional imaging. 4. Patient describes a new skin lesion in the left breast. Recommend clinical evaluation. Additional Imaging required This examination should not preclude the clinical evaluation of a suspicious palpable abnormality. This patient's information was entered into a reminder system with a target due date for their next mammogram. Electronically signed by: Lucita Garcia DO 04/23/2025 10:59 PM EDT RP Dictated By: Lucita Garcia DO Signed By: <Electronically signed by Lucita Garcia DO in OV> 04/23/25 2259 DD/ 1336 TD/TT: 04/08/25 1408 Data Report Analyst: us Oziel Wing MD IMG BI PROCEDURES Edited Result - Final * HPV DNA, Low/High Risk (02/10/2025 8:24 AM EDT) HPV High Risk Negative Negative [facility] HPV Genotype 16 Negative Negative [facility] HPV Genotype 18 Negative Negative [facility] Comment:HPV testing performe d at [facility] (CLIA#[id number]), [address] [place] [address].Testing for HPV was performed using the Hy[employer] SAMANTA 6800system. The presence of HPV in the female genital tract isassociated with a number of diseases, including cervicalcarcinoma. The HPV DNA high risk pool tests for HPV 31, 33,35, 39, 45, 51, 52, 56, 58, 59, 66 and 68. The testing forHPV 16 and 18 genotypes has also been performed. A positiveresult indicates detection of nucleic acid sequences fromone or more subtypes, whereas a negative result indicatessuch sequences were not detected. 02/10/2025 8:24 AM EDT 02/11/2025 9:05 AM EDT us Griselda Colon CNM LAB BLOOD ORDERABLES Lis pulido Result [facility] [address] [place] [phone] * Pap Smear (02/10/2025 8:24 AM EDT) Swab 02/10/2025 8:24 AM EDT 02/11/2025 9:05 AM EDT [facility] - 02/15/2025 2:31 PM EDT ----- ------- Name: Araceli Wright Age/Sex: 44/F : 1980 Unit#: [id number] Attend Dr: GRISELDA COLON CNM Re02/10/25 Status: [facility] Disch: ----- ------- SPEC : [id number] RECD: 02/11/25 STATUS: GREG STRINGER NUM: [id number] LUANA: 02/10/25 [facility] DR: GRISELDA COLON CNM ENTERED: 02/11/25 SP TYPE: Pap Smr OT : ORDERED: Pap Smear, PAP path review Interpretation Satisfactory for evaluation. Negative for intraepithelial lesion or malignancy. Endometrial cells present age 45 and over. Scant cellularity. HPV High Risk: Negative HPV Genotyping 16: Negative HPV Genotyping 18: Negative Comment: Endometrial cells after age 45, particularly out of phase or after menopause, may be associated with benign endometrium, hormonal alterations or, less commonly, endometrial/uterine abnormalities. Please correlate with clinical findings. Clinical Information LMP: Unknown date Previous PAP test:Unknown date/findings Material Received ThinPrep-Cervical ----- ------- Signed (signature on file) Joyce Vergara MD 02/15/25 1431 ----- ------- END OF REPORT us Griselda Colon [facility] CYTOLOGY ORDERABLES F inal Result Performing Organization Address [facility] [place] [facility] Co de Phone Number [facility] [address] [place] [phone] * Hepatitis C Antibody with Reflex to HCV, RNA, Quantitative, Real-Time PCR (11/30/2024 11:09 AM EST) Hepatitis C Antibody Nonreactive Nonreactive [facility] Comment:Antibodies to HCV no t detected; does not exclude early acuteHCV infection. Blood Venous blood specimen / Unknown 11/30/2024 11:09 AM EST 11/30/2024 2:14 PM EST Oziel Wing MD LAB BLOOD ORDERABL ES Final Result Performing Organization Address [facility] [place] [facility]/ZIP Co de Phone Number [facility] [address] [place] [phone] * HIV-1/2 Antigen and Antibodies, Fourth Generation, with Reflexes (11/30/2024 11:09 AM EST) HIV AB/AG Nonreactive Nonreactive [facility] Comment:HIV-1 p24 Ag and/or HIV-1/HIV-2 Ab not detected.A test result that is nonreactive does not exclude thepossibility of exposure to or infection with HIV-1 and/orHIV-2. Nonreactive results in this assay for individualswith prior exposure to HIV-1 and/or HIV-2 may be due toantigen and antibody levels that are below the limit ofdetection of this assay.The meets HIV Ag/Ab Combo assay result andsupplemental assay results should be interpreted inconjunction with the patient's clinical presentation,history and other laboratory results. If the results areinconsistent with clinical evidence, additional testing issuggested to confirm the result. Blood Venous blood specimen / Unknown 11/30/2024 11:09 AM EST 11/30/2024 2:14 PM EST us Oziel Wing MD LAB BLOOD ORDERABL ES Final Result [facility] [address] [place] [phone] * Lipid Panel, Standard (11/30/2024 11:09 AM EST) Triglycerides 53 <150 mg/dL [facility] Comment:Desirable Triglyceri de: less than 150 mg/dLBorderline High Triglyceride 150-199 mg/dLHigh Triglyceride: 200-499 mg/dLVery High Triglyceride: greater than or equal to 5OO mg/dL Cholesterol 146 <200 mg/dL [facility] Comment:Desirable Cholestero l: less than 200 mg/dLBorderline High Cholesterol: 200-239 mg/dLHigh Cholesterol: greater than 239 mg/dL LDL Cholesterol Calculated 83 <100 mg/dL [facility] Comment:Desirable LDL: less than 100 mg/dLNear Optimal/Above Optimal LDL: 110- 129 mg/dLBorderline High LDL: 130-159 mg/dLHigh LDL: 160-189 mg/dLVery High LDL: greater than or equal to 190 mg/dL HDL Cholesterol 53 >40 mg/dL [facility] Comment:Desirable HDL: great er than 40 mg/dL Note: This HDL assay may give artificially low results in patients with liver disease. Blood Venous blood specimen / Unknown 11/30/2024 11:09 AM EST 11/30/2024 2:14 PM EST Oziel Wing MD LAB BLOOD ORDERABL ES Final Result [facility] [address] [place] [phone] from Last 3 Months or Most Recently Relevant to Health Maintenance Insurance [facility] Care Teams Temperature Control Inspector Relationship Specialty Start Date End Date Oziel Sandra MD [address] [place] [phone] PCP - General Internal Medicine 02/21/25
--- OUTSIDE RECORDS SUMMARY | 2025-05-19 12:16 | XMS_ITS | Clinical Summary ---
Author Organization [facility] Address [address] [place] [address] Phone Care Team Providers Care Optical Glass Inspector Name Role Phone Dora Westbrook MD Primary Care Provider [phone] Surgical History Surgery Date Site/Laterality Comments OTHER [...] - 2023-2 5 season) 2024 02/26/2021, 02/05/2021 Depression Screening 10/13/2024 Influenza Vaccine (#1) 2025 06/22/2019 Cholesterol Screening (Lipid Panel) 11/30/2029 11/30/2024 DTaP,Tdap,and [...] to 49 Years) Aged Out No longer eligible b ased on patient's age to complete this topic RSV Immunization Patients Under 20 months Aged Out No longer eligible b ased on patient's age to complete this topic Varicella Vaccines Aged Out No longer eligible based on patient's age to complete this topic Insurance PLAN Care Teams Optical Glass Inspector Relationship Specialty Start Date End Date Dora Westbrook MD PCP - General Internal Medicine 12/05/17
--- OUTSIDE RECORDS SUMMARY | 2025-05-19 12:16 | XMS_ITS ---
Author Name [facility] Organization Unknown Results Test Name/Text Value Interpretation Date Range Source INFLUENZA A PCR (CEPHEID) Not Detected Normal 04/13/2024 [facility] INFLUENZA B PCR (CEPHEID) Not Detected Normal 04/13/2024 [facility] SARS-COV-2 PCR (CEPHEID) Negative Normal 04/13/2024 [facility] RSV PCR (CEPHEID) Not Detected Normal 04/13/2024 [facility] CHLORIDE 109.0 mmol/L Normal 04/13/2024 100 - 111 [facility] POTASSIUM 4.8 mmol/L Normal 04/13/2024 3.6 - 5.1 [facility] GLOMERULAR FILTRATION RATE ML/MIN/1.73 SQ M.PREDICTED 93.0 mL/min/1.73m*2 Normal 04/13/2024 60 - [facility] UREA NITROGEN 10.0 mg/dL Normal 04/13/2024 8 - 24 [facility] CALCIUM, TOTAL 8.9 mg/dL Normal 04/13/2024 8.4 - 10.2 [facility] BICARBONATE 23.0 mmol/L Normal 04/13/2024 23 - 32 [facility] ANION GAP 7.0 mmol/L Normal 04/13/2024 3 - 11 [facility] GLUCOSE 92.0 mg/dL Normal 04/13/2024 70 - 200 [facility] CREATININE 0.8 mg/dL Normal 04/13/2024 0.6 - 1.2 [facility] SODIUM 139.0 mmol/L Normal 04/13/2024 137 - [address] [facility] [address] 0.2 10*3/uL Normal 04/13/2024 0 - 0.[address] [facility] [address] 0.5 10*3/uL Normal 04/13/2024 0.2 - 0.[address] [facility] [address] 0.0 10*3/uL Normal 04/13/2024 0 - 0. [address] [facility] [address] 1.9 10*3/uL Normal 04/13/2024 0.7 - 4.5 [facility] HEMATOCRIT 36.2 % Normal 04/13/2024 35 - 47 [facility] RED CELL COUNT 4.2 10*6/ L Normal 04/13/2024 3.8 - 5.2 [facility] AUTO NRBC % 0.0 % Normal 04/13/2024 0 - 0 [facility] MCHC 32.9 g/dL Normal 04/13/2024 32 - 36 [facility] HEMOGLOBIN 11.9 g/dL Below low normal 04/13/2024 12 - 16 [facility] PLATELET COUNT 335.0 10*3/uL Normal 04/13/2024 150 - 440 [facility] NEUTROPHIL % 69.0 % Normal 04/13/2024 40 - 70 [facility] LYMPHOCYTE % 22.2 % Normal 04/13/2024 20 - 50 [facility] BASOPHILS % 0.5 % Normal 04/13/2024 0 - 2 [facility] IMMATURE GRANULOCYTE % 0.2 % Normal 04/13/2024 0 - 0.6 [facility] MONOCYTE % 6.0 % Normal 04/13/2024 4 - [address] [facility] [address] 5.9 10*3/uL Normal 04/13/2024 1.4 - 6.3 [facility] RBC DISTRIBUTION WIDTH 12.8 % Normal 04/13/2024 11.6 - 14.8 [facility] MCH 28.3 pg Normal 04/13/2024 26 - 34 [facility] MCV 86.2 fL Normal 04/13/2024 80 - 100 [facility] EOSINOPHIL % 2.1 % Normal 04/13/2024 0 - 6 [facility] WHITE CELL COUNT 8.5 10*3/uL Normal 04/13/2024 3.6 - 11 [facility] Encounters Encounter Type Encounter Reason Primary Diagnosis Location Date Emergency Dizziness and giddiness Dizziness and giddiness [facility] 04/13/2024 Care Team Organization Name Specialty Phone Email Start Date End Da te [facility] NO PCP Primary Care 04/14/2024 [facility] 04/13/2024
--- OUTSIDE RECORDS SUMMARY | 2025-05-19 12:16 | XMS_ITS | Clinical Summary ---
Author Organization [facility] Address [address] [place] [address] Care Team Providers Care Unit Educator Name Role Phone Pcp, Porsche MD Primary [...] 76 04/13/2024 3:58 PM EDT Temperature 36.8 C (98.2 F) 04/13/2024 3:58 PM EDT Respiratory Rate 18 04/13/2024 3:58 PM EDT [...] 2023-2 5 season) 2024 Influenza Vaccine (#1) 2025 06/22/2019 Zoster Vaccines (1 of 2) 2028 [...] to complete this topic Insurance Krysta fitzpatrick [address] [phone] [facility] Care Teams Unit Educator Relationship Specialty Start Date End Date Porsche Matta MD [address] [place] [address] PCP - General Internal Medicine 04/13/24
== END 2025-05-19 11:41 | disposition home or self-care (01) ==
LOC: HO.MAMMO 11:40
PROVIDERS: PCP Internal Medicine; Visit Provider Internal Medicine
DX: N64.89 Other specified disorders of breast (principal)
CPT/HCPCS: 77061; 77065

== ENCOUNTER → 2025-05-19 12:30 | Outpatient (BNV) | payer OTHER, SELFPAY | PROVIDERS: PCP Internal Medicine; Visit Provider Internal Medicine | DX: R92.8 Other abnormal and inconclusive findings on diagnostic imaging of breast (principal) | CPT/HCPCS: 77061; 77065 ==

== ENCOUNTER 2025-05-30 18:24 | Outpatient (REF) | payer OTHER, SELFPAY | END 2025-05-30 18:25 | disposition home or self-care (01) | LOC: HO.HHCLNP 18:24 | PROVIDERS: Visit Provider Advanced Practice Midwife | DX: Z13.89 Encounter for screening for other disorder (principal) | CPT/HCPCS: 87661 ==